=== PATIENT | male | born 1950 | race Caucasian/White ===

== ENCOUNTER → 2020-02-06 16:26 | Outpatient (CLI) | payer MEDICARE, SELFPAY ==
[2020-02-06 17:03] LABS: Add Manual Diff / Slide Review NO; Basophils Absolute Auto 0 /uL (0-100); Basophils Percent Auto 0.5 % (0-2); Eosinophils Absolute Auto 0 /uL (0-450); Eosinophils Percent Auto 0.8 % (2-4); Hematocrit 43.3 % (41-53); Hemoglobin 14.9 g/dL (13.5-17.5); Lymphocytes Absolute Auto 1400 /uL (1100-4500); Lymphocytes Percent Auto 26.7 % (25-40); Mean Corpuscular HGB Conc 34.4 % (30-36); Mean Corpuscular Hemoglobin 32.3 PG (26-34); Mean Corpuscular Volume 93.8 fL (80-100); Monocytes Absolute Auto 400 /uL (0-900); Monocytes Percent Auto 8.4 % (3-14); Neutrophils Absolute Auto 3300 /uL (1500-7000); Neutrophils Percent Auto 63.6 % (50-75); Platelet Count 168 X10^3/uL (150-400); Red Blood Cell Count 4.62 X10^6/uL (4.5-5.9); Red Cell Distribution Width 13.2 % (11.6-14.8); White Blood Cell Count 5.2 X10^3/uL (4.5-11.0)
[2020-02-06 18:01] LABS: Alanine Aminotransferase 26 IU/L (<50); Albumin 4.6 g/dL (3.5-5.0); Albumin Globulin Ratio 1.5 (1.0-2.8); Alkaline Phosphatase 59 U/L (38-126); Aspartate Aminotransferase 35 IU/L (17-59); BUN Creatinine Ratio 17.8 (6-22); Blood Urea Nitrogen 16 mg/dL (9-20); Calcium 9.6 mg/dL (8.4-10.2); Carbon Dioxide 29 mmol/L (22-32); Chloride 103 mmol/L (98-107); Cholesterol 142 mg/dL (140-199); Estimated Glomerular Filt Rate > 60.0 mL/min (>60); Globulin 3.1 g/dL (1.7-4.1); Glucose 89 mg/dL (80-110); HDL Cholesterol 79 mg/dL (40-60); HEMOLYSIS < 15 (0-50); LDL Cholesterol Calculated 57 mg/dL (<100); Potassium 4.3 mmol/L (3.4-5.1); Sodium 137 mmol/L (137-145); Total Protein 7.7 g/dL (6.3-8.2); Triglycerides 28 mg/dL (35-150)
[2020-02-06 18:30] LABS: Prostate Specific Antigen 0.446 ng/mL (0.10-4.00)
== END ==
PROVIDERS: PCP Family Medicine; Referring Provider Family Medicine; Visit Provider Family Medicine
DX: I10 Essential (primary) hypertension (principal); Z13.220 Encounter for screening for lipoid disorders; Z12.5 Encounter for screening for malignant neoplasm of prostate
CPT/HCPCS: 36415; 80053; 80061; 84153; 85025; G0103

== ENCOUNTER → 2020-07-16 11:05 | Outpatient (CLI) | payer MEDICARE, SELFPAY ==
--- NOTE | 2020-07-16 11:07 | DI.US.S_ITS ---
PROCEDURE: US PERIPH VENOUS LOW EXTREM LT INDICATIONS: left lower extr. edema; r/out DVT; has a hx of DVT TECHNIQUE: Real-time imaging, as well as color and pulse Doppler interrogation, were performed of the lower extremity deep veins from the inguinal ligament to the popliteal fossa. COMPARISON: , CR, XR KNEE LT 3V, 07/16/2020, 11:15. FINDINGS: Nonocclusive, chronic appearing thrombus can be seen within the common femoral vein. Within the femoral vein, no spontaneous flow can be seen within the mid to distal femoral vein. Minimal flow can be seen with augmentation. There is significant nonocclusive thrombus within the popliteal vein. The peroneal and posterior tibial veins demonstrate occlusive thrombus. IMPRESSION: Lower extremity deep venous thrombosis can be seen, with nonocclusive thrombus within the common femoral vein, femoral vein, and popliteal vein. Given the nonocclusive nature, this is considered to be chronic. Occlusive thrombus can be seen within the peroneal and posterior tibial veins. This is most likely acute on chronic thrombus. However, please correlate with patient history and any prior outside images. Dictated by: Sedrick Crook M.D. on 07/16/2020 at 11:46 Approved by: Sedrick Crook M.D. on 07/16/2020 at 11:49
--- NOTE | 2020-07-16 11:07 | DI.RAD.S_ITS ---
PROCEDURE: XR KNEE LT 3V INDICATIONS: left knee pain TECHNIQUE: 3 views of the knee were acquired. COMPARISON: None. FINDINGS: Bones: Mild medial joint space narrowing noted. The osseous structures are otherwise unremarkable without evidence of fracture. Soft tissues: No joint effusion. No suspicious soft tissue calcifications. IMPRESSION: Mild medial compartment joint space narrowing. Dictated by: Raad Gaming M.D. on 07/16/2020 at 11:31 Approved by: Raad Gaming M.D. on 07/16/2020 at 11:32
== END ==
PROVIDERS: PCP Family Medicine; Referring Provider Registered Nurse; Visit Provider Registered Nurse
DX: I82.442 Acute embolism and thrombosis of left tibial vein (principal); I82.452 Acute embolism and thrombosis of left peroneal vein; I82.512 Chronic embolism and thrombosis of left femoral vein; I82.532 Chronic embolism and thrombosis of left popliteal vein; M25.562 Pain in left knee; R60.0 Localized edema
CPT/HCPCS: 73562; 93971

== ENCOUNTER 2020-07-16 19:51 | Emergency (ER) | payer MEDICARE, SELFPAY ==
[2020-07-16 20:02] VITALS: BP 188/92; PULSE 82; RESP 16; TEMP 36.2; O2SAT 99
[2020-07-16 20:11] VITALS: PULSE 70
--- NOTE | 2020-07-16 20:47 | ED.EXTPRO ---
HPI - Extremity Problem General Chief complaint: Extremity Problem,Nontraumatic Stated complaint: HAD US WAS TOLD TO COME IN Time Seen by Provider: 07/16/20 19:55 Source: patient Mode of arrival: Ambulatory Limitations: no limitations History of Present Illness HPI Narrative: 70M nonsmoker and largely healthy male presents at the request of his doctor for evaluation after abnormal findings noted on a peripheral ultrasound. Patient was diagnosed with a left lower extremity DVT thought to be related to long distance travel in March. He had flown to [place] and within a few weeks started complaining of left calf pain, swelling and redness and after consulting with his doctor an ultrasound was ordered which noted a DVT. He was started on the Eliquis starter pack and has been on 5 mg p.o. b.i.d. ever since. He states he has missed no doses. Patient has had no chest pain or shortness of breath. He states that he continues to be quite active and had been running a few days ago when he noticed some medial left knee pain and contacted his doctor for evaluation. He thinks he may have tweaked it while running and had some pain with ambulation which has resolved. He denies any joint effusion, posterior knee pain, calf swelling or thigh discomfort, he denies any redness, warmth or fever. His primary care provider had ordered a knee x-ray which was unremarkable but also an ultrasound to evaluate for clot. The ultrasound does note clot but suggests these are likely chronic given the lack of full occlusion. MD Complaint: joint paint Onset (ago): day(s) Pain Consistency: intermittent Location: left Quality: aching Radiation: none Relieving factors: nothing Exacerbating factors: walking Associated symptoms: denies other symptoms Context: history of DVT Related Data Home Medications Medication Instructions Recorded Confirmed apixaban [Eliquis] 5 mg PO BID 07/16/20 07/16/20 lisinopril 20 mg PO DAILY 07/16/20 07/16/20 Allergies Allergy/AdvReac Type Severity Reaction Status Date / Time No Known Drug Allergies Allergy Verified 07/16/20 20:07 Review of Systems Constitutional Constitutional: Denies chills, Denies fatigue, Denies fever(s), Denies frequent falls, Denies lethargy and Denies weakness Eyes Eyes: Denies change in vision, Denies eye discharge, Denies irritation and Denies loss of vision ENT Ears, Nose, Mouth, and Throat: Denies change in voice, Denies dizziness, Denies neck pain, Denies sore throat and Denies throat swelling Cardiovascular Cardiovascular: Denies chest pain, Denies irregular heart rhythm, Denies lightheadedness, Denies palpitations, Denies dyspnea, Denies dyspnea on exertion and Denies orthopnea Respiratory Respiratory: Denies cough, Denies dyspnea, Denies dyspnea on exertion and Denies wheezing Gastrointestinal Gastrointestinal: Denies abdominal pain, Denies change in bowel habits, Denies diarrhea, Denies nausea and Denies vomiting Musculoskeletal Musculoskeletal: Reports arthralgias, Denies neck pain and Denies numbness Integumentary/Breasts Skin/Breast: Denies pruritus, Denies erythema, Denies rash and Denies wounds Neurologic Neurologic: Denies behavioral changes, Denies confusion, Denies dizziness, Denies frequent falls, Denies loss of vision, Denies numbness and Denies weakness Psychiatric Psychiatric: Denies anxiety, Denies behavioral changes, Denies confusion, Denies depression, Denies homicidal ideation and Denies suicidal ideation Endocrine Endocrine: Denies fatigue, Denies flushing and Denies palpitations Hematologic/Lymphatic Hematologic/Lymphatic: Denies easy bruising Allergic/Immunologic Allergic/Immunologic: Denies urticaria, Denies throat swelling and Denies wheezing Patient History Medical History Body posture problem Chicken pox Colon polyps (~2004) Eczema Edema of left lower extremity Heart murmur Hemorrhoid (~2015) Hx of deep venous thrombosis Hypertension, essential, benign Left arm pain Left knee pain Measles Mumps Screening for hyperlipidemia Screening for prostate cancer Shoulder pain (~2011) Skin cancer (~2013) Upper extremity somatic dysfunction Surgical History Anesthesia History of basal cell carcinoma excision (~2013) History of hemangioma excision (~1989) History of shoulder surgery (~08/13/13) History of tonsillectomy (~1954) Family History Father No problems noted. Mother Dementia Hypertension Brother Hypertension Brother Hypertension Grandfather History of heart disease Grandmother Cancer Grandfather History of heart disease Social History Smoking Status: Never smoker Smoking Status: Never smoker alcohol intake frequency: 0-2 drinks per day Substance Use Type: does not use Exam Narrative Exam Narrative: GENERAL: [70] year old patient appears younger than stated age. Well-nourished, well-developed patient, in no obvious or significant distress. HEAD: Atraumatic. Normocephalic. EYES: Pupils equal round and reactive. Extraocular motions intact. No scleral icterus. No injection or drainage. ENT: Nose without bleeding, purulent drainage. Throat without erythema, tonsillar hypertrophy or exudate. Airway patent. NECK: Trachea midline. Non tender CARDIOVASCULAR: Regular rate and rhythm without murmurs, gallops, or rubs. RESPIRATORY: Clear to auscultation. Breath sounds equal bilaterally. No wheezes, rales, or rhonchi. GASTROINTESTINAL: Abdomen soft, non-tender, nondistended. EXTREMITIES: No edema or joint tenderness. Or warmth, sensation and distal pulses intact BACK: Nontender without deformity or crepitance. No flank tenderness. NEURO: AOx3. SKIN: No rash or erythema of visible areas Initial Vital Signs Initial Vital Signs: Vital Signs Temperature 97.1 F L 07/16/20 20:02 Pulse Rate 82 07/16/20 20:02 Respiratory Rate 16 07/16/20 20:02 Blood Pressure 188/92 H 07/16/20 20:02 Pulse Oximetry 99 07/16/20 20:02 Course Consultations Consultation #1: discussed case with internal controls specialist hematology to discuss case. Given no swelling, redness, warmth and largely unremarkable findings on US he suggests this is unlikely a failure of anticoagulation. He recommends continuing current medication regimen and repeating US in 4 weeks unless there is clinical indication to do so sooner. Vital Signs Vital signs: Vital Signs - 8 hr 07/16/20 20:02 07/16/20 20:11 Temperature 97.1 F L Pulse Rate 82 Pulse Rate [Left Dorsalis Pedis] 70 Respiratory Rate 16 Blood Pressure 188/92 H Pulse Oximetry 99 Discharge Plan Departure Patient Disposition: Home Clinical Impression: Chronic deep vein thrombosis (DVT) Qualifiers: DVT location: lower extremity Affected thrombotic vein of extremity: femoral Laterality: left Qualified Code(s): I82.512 - Chronic embolism and thrombosis of left femoral vein Instructions: DI for Deep Vein Thrombosis Activity Restrictions/Additional Instructions: *You have been diagnosed with [chronic appearing DVT on ultrasound of your left lower extremity. Your history, exam and ultrasound would suggest that this is a chronic DVT and based on our discussion, and also that of mine with our on-call meteorological equipment repairer was suggest this is unlikely to be a failure of your anticoagulation] *What to do: *Please continue to take medications as directed *Follow up with your primary care provider in 2-3 days, call for an appointment. Let them know you were seen in the Emergency Department and that we ask that you be seen in follow up. Hematology would suggest a repeat ultrasound in 4 weeks. *Return to ER if you should have any new, worsening or concerning symptoms, such as [ increasing pain, fever > 101F, swelling, redness or other bothersome symptoms] Prescriptions: No Action Eliquis 5 mg tablet 5 mg PO BID RF: 0 lisinopril 20 mg tablet 20 mg PO DAILY RF: 0 Referrals: Wally Sierra DO [Primary Care Provider] -
== END 2020-07-16 21:03 | disposition home or self-care (01) ==
PROVIDERS: Emergency Provider Emergency Medicine; PCP Family Medicine
DX: I82.512 Chronic embolism and thrombosis of left femoral vein (principal); Z79.01 Long term (current) use of anticoagulants; I82.442 Acute embolism and thrombosis of left tibial vein; I82.452 Acute embolism and thrombosis of left peroneal vein; I82.532 Chronic embolism and thrombosis of left popliteal vein; M25.562 Pain in left knee; R60.0 Localized edema
CPT/HCPCS: 73562; 93971; 99281; 99283

== ENCOUNTER → 2020-08-15 10:39 | Outpatient (CLI) | payer MEDICARE, SELFPAY ==
--- NOTE | 2020-08-15 10:41 | DI.US.S_ITS ---
PROCEDURE: [facility] INDICATIONS: chronic dvt TECHNIQUE: Real-time imaging, as well as color and pulse Doppler interrogation, were performed of the lower extremity deep veins from the inguinal ligament to the popliteal fossa. COMPARISON: [facility], [facility] LOW EXTREM LT, 07/16/2020, 10:58. FINDINGS: There is nonocclusive thrombus and likely chronic, within the superficial femoral vein and popliteal vein and also note is made of thrombosis within the perineal and posterior tibial vein. Overall the appearance is improved from the comparison study 07/16/20. IMPRESSION: Improving DVT left lower extremity, now nonocclusive at the superficial femoral vein and popliteal vein, and also noted within the calf veins open (peroneal and posterior tibial veins). Dictated by: Jamarcus Aguirre M.D. on 08/15/2020 at 12:44 Approved by: Jamarcus Aguirre M.D. on 08/15/2020 at 12:45
== END ==
PROVIDERS: PCP Family Medicine; Referring Provider Family Medicine; Visit Provider Family Medicine
DX: I82.512 Chronic embolism and thrombosis of left femoral vein (principal)
CPT/HCPCS: 93971

== ENCOUNTER 2021-01-09 14:30 | Outpatient (RCR) | payer MEDICARE, SELFPAY ==
--- NOTE | 2020-11-22 10:31 | PT.OIE ---
Current Diagnoses Pain in left knee (11/22/20) Past Medical History (Last Reviewed 07/17/20 @ 03:12 by Rubén Shaw DO) Body posture problem Chicken pox Colon polyps (~2004) Eczema Edema of left lower extremity Heart murmur Hemorrhoid (~2015) History of basal cell carcinoma excision (~2013) History of hemangioma excision (~1989) History of shoulder surgery (~08/13/13) History of tonsillectomy (~1954) Hx of deep venous thrombosis Hypertension, essential, benign Left arm pain Left knee pain Measles Mumps Screening for hyperlipidemia Screening for prostate cancer Shoulder pain (~2011) Skin cancer (~2013) Upper extremity somatic dysfunction Past Surgical History (Last Reviewed 07/17/20 @ 03:12 by Rubén Shaw DO) Anesthesia History of basal cell carcinoma excision (~2013) History of hemangioma excision (~1989) History of shoulder surgery (~08/13/13) History of tonsillectomy (~1954) Visit Care Team Role Provider Type Wally Sierra DO Attending Provider Physician Family Provider Primary Care Provider Referring Provider Specialty: [facility] Address: [address] [place] [address] Email: Physical Therapy Initial Evaluation PT-OP-A Visit Information Start: 11/22/20 10:00 Freq: Status: Active Protocol: Document 11/22/20 09:00 (Rec: 11/22/20 10:31 [email or web address]) Out-Patient Physical Therapy Visit Information Visit Information Visit Type Initial Evaluation Visit Start Time 09:00 Visit Stop Time 09:45 Total Visit Minutes 45 Visit Number 04/03 Number of END MAKER Visits 0 Evaluation Information Evaluation Date 11/22/20 Precautions Precautions previous DVT PT-OP-B Current Condition Start: 11/22/20 10:00 Freq: Status: Active Protocol: Document 11/22/20 09:00 (Rec: 11/22/20 10:31 [email or web address]) Current Condition History of Current Condition Onset Date early this year Current Complaints L knee pain, unable to run History of Current Condition Flaco is a 70 yo very active male here for his L knee pain early this year. Pt stated his pain started after he ran one day at the medial knee joint line. He described his pain as sharp when he runs which led him to stop and limp after. He also has pain almost every night when he lays down with both legs straight. Rest tends to help so he has stopped running completely since early this year. He is still walking in the community and going to swim again starting from tomorrow. 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 His goal is to be able to run again. Pt's daily ex routine includes push up, sit up, squat and walking. Prior Treatments and Tests 07/16/2020 x-ray on L knee IMPRESSION: Mild medial compartment joint space narrowing. Rtc repair on R shoulder 2017 Current Functional Impairments (Reported) Functional Limitations- Recreation/ unable to run d/t L knee pain Hobbies Personal Factors Other Personal Factors That May Effect previous DVT Therapy/Recovery PT-OP-C Subjective Start: 11/22/20 10:00 Freq: Status: Active Protocol: Document 11/22/20 09:00 (Rec: 11/22/20 10:31 [email or web address]) Patient Questionnaires Lower Extremity Functional Scale LEFS Score 73 LEFS Impairment 1 to 19% Impaired (Score 63-79 ) OP-PT Pain Assessment Location Left Knee Pain Location Details medial knee joint line Intensity 2 Description Aching Frequency Occasional Pain Aggravating Factors Exercise Other Pain Aggravating Factors running/ sleeping in supine Other Pain Alleviating Factors rest PT-OP-D Balance Start: 11/22/20 10:00 Freq: Status: Active Protocol: Document 11/22/20 09:00 (Rec: 11/22/20 10:31 [email or web address]) Balance Tests Single Limb Standing Single Limb- Right 33, R foot out, R knee bent Single Limb- Left 31, foot pronation PT-OP-F Manual Assessment Start: 11/22/20 10:00 Freq: Status: Active Protocol: Document 11/22/20 09:00 (Rec: 11/22/20 10:31 [email or web address]) Manual Assessments Soft Tissue Assessment Soft Tissue Mobility Assessment mild discomfort to pressure at L medial joint line Joint Mobility Assessment Joint Mobility Assessment hypomobile L calcaneal glide and ankle eversion PT-OP-G Mobility & Gait Start: 11/22/20 10:00 Freq: Status: Active Protocol: Document 11/22/20 09:00 (Rec: 11/22/20 10:31 [email or web address]) OP Gait Assessment Comments Gait Comments RLE= increased knee flexion in swing phase , R toe out during stance phase LLE= slight valgus moment on medial knee during stance phase, slight R hip hike noted PT-OP-K Range of Motion Start: 11/22/20 10:00 Freq: Status: Active Protocol: Document 11/22/20 09:00 (Rec: 11/22/20 10:31 [email or web address]) Knee Goniometric Range of Motion Knee Right Knee ROM WFL Yes Patient Position Supine Flexion Active (degrees) 135 Extension Active (degrees) 5 Left Knee ROM WFL Yes Patient Position Supine Flexion Active (degrees) 130 Extension Active (degrees) 4 Ankle and Foot Goniometric Range of Motion Ankle and Foot Right Active Ankle/Foot ROM WFL Yes Testing Position Supine Dorsiflexion with Knee Flexed 16 Dorsiflexion with Knee Extended 4 Left Active Ankle/Foot ROM WFL Yes Testing Position Supine Dorsiflexion with Knee Flexed 17 Dorsiflexion with Knee Extended 8 PT-OP-L Special Tests Start: 11/22/20 10:00 Freq: Status: Active Protocol: Document 11/22/20 09:00 (Rec: 11/22/20 10:31 [email or web address]) Special Tests Knee Special Tests Varus- 0 Degrees Test Results -ve Varus- 25 Degrees Test Results -ve Valgus- 25 Degrees Test Results +VE Valgus- 0 Degrees Test Results -ve Apley's Compression Test Results +VE with tibial ER Yo Test Test Results +VE with tibial ER PT-OP-M Strength Start: 11/22/20 10:00 Freq: Status: Active Protocol: Document 11/22/20 09:00 (Rec: 11/22/20 10:31 [email or web address]) Hip Strength Hip Manual Muscle Testing Right Flexion (L2) 5 Normal Extension (S1) 5 Normal Abduction 5 Normal Adduction 5 Normal Left Flexion (L2) 5 Normal Extension (S1) 4+ Good+ Abduction 4+ Good+ Adduction 5 Normal Knee Strength Knee Manual Muscle Testing Right Flexion (S2) 5 Normal Extension (L3) 5 Normal Left Flexion (S2) 4+ Good+ Extension (L3) 4+ Good+ Ankle/Foot Strength Ankle and Foot Manual Muscle Testing Right Dorsiflexion (L4) 5 Normal Plantarflexion (S1) 5 Normal Left Dorsiflexion (L4) 5 Normal Plantarflexion (S1) 5 Normal PT-OP-T Assessment and Plan Start: 11/22/20 10:00 Freq: Status: Active Protocol: Document 11/22/20 09:00 (Rec: 11/22/20 10:31 [email or web address]) Physical Therapy Assessment Rehab Potential Rehabilitation Potential Excellent Evaluation Complexity Number of Personal Factors/Comorbidities 1-2 Number of Body Systems Impaired 1-2 Clinical Presentation at Evaluation Stable Goals HEP Impairment pt does not ahve HEP Short Term Goal (STG) pt will comply to daily HEP to improve his knee strength and mobility therefore he can return to running STG Duration 8 weeks running Impairment pt unable to run since feburary. Short Term Goal (STG) pt will be able to start jogging 1-2 miles x 2 times a week with no increase pain in L knee STG Duration 4 weeks Equipment Validation Specialist Goal (LTG) pt will be able to start jogging 3 miles x 3 times a week with no increase pain in L knee LTG Duration 8 weeks night pain Impairment pt experiences daily night pain at L knee Short Term Goal (STG) pt will have L knee pain no more than 4 nights a week to improve his quality of sleep STG Duration 4weeks Shelter Goal (LTG) pt will have L knee pain no more than 2 nights a week to improve his quality of sleep LTG Duration 8 weeks Assessment Summary Assessment 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 Upon assessment, pt shows signs of OA at medial compartment like his x-ray shown. Both Yo, Apley's compression are both positive. He also presents possible LLD (R>L) who walks with R hip hike to increase R LE clearance during gait assessment. Further assessment will be needed. I believe pt will benefit from skilled therapy to improve his L knee, ankle flexibility and single leg stability by ROM therex and low impact strength training. Therefore, pt can fully return to his running routine without discomfort. Physical Therapy Plan Frequency and Duration Frequency of Treatment 1x/Week Duration of Treatment 8 weeks Plan of Care Start Date 11/22/20 Plan of Care End Date 01/21/21 Therapeutic Interventions Therapeutic Interventions Aquatic Therapy,Balance Training,Gait Training,Home Exercise Program,Joint Mobilizations,Manual Therapy, Neuromuscular Re-education, Patient/Caregiver Education, Self-Care/Home Management,Soft Tissue Mobilization,Taping, Therapeutic Activities, Therapeutic Exercises Modalities Cold Pack/Ice Massage,Electric Stimulation,Hot Packs, Infrared Therapy,Ultrasound Next Visit Focus/Plan Next Note Type Treatment Note Next Visit Plan assess LLD galf stretch, eversion ex LAQ, bridging glute sterngtehning
--- NOTE | 2020-11-22 10:31 | PT.OPPOC ---
Physical, Occupational & Speech Therapy At [facility] Current Diagnoses Pain in left knee (11/22/20) Visit Care Team Role Provider Type Wally Sierra DO Attending Provider Physician Family Provider Primary Care Provider Referring Provider Specialty: Family Practice Address: [address] [place] [address], [id number] Email: Plan Of Care PT-OP-T Assessment and Plan Start: 11/22/20 10:00 Freq: Status: Active Protocol: Document 11/22/20 09:00 (Rec: 11/22/20 10:31 [email or web address]) Physical Therapy Assessment Rehab Potential Rehabilitation Potential Excellent Evaluation Complexity Number of Personal Factors/Comorbidities 1-2 Number of Body Systems Impaired 1-2 Clinical Presentation at Evaluation Stable Goals HEP Impairment pt does not ahve HEP Short Term Goal (STG) pt will comply to daily HEP to improve his knee strength and mobility therefore he can return to running STG Duration 8 weeks running Impairment pt unable to run since feburary. Short Term Goal (STG) pt will be able to start jogging 1-2 miles x 2 times a week with no increase pain in L knee STG Duration 4 weeks Business Attorney Goal (LTG) pt will be able to start jogging 3 miles x 3 times a week with no increase pain in L knee LTG Duration 8 weeks night pain Impairment pt experiences daily night pain at L knee Short Term Goal (STG) pt will have L knee pain no more than 4 nights a week to improve his quality of sleep STG Duration 4weeks Assisted Goal (LTG) pt will have L knee pain no more than 2 nights a week to improve his quality of sleep LTG Duration 8 weeks Assessment Summary Assessment 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 Upon assessment, pt shows signs of OA at medial compartment like his x-ray shown. Both YoJulia's compression are both positive. He also presents possible LLD (R>L) who walks with R hip hike to increase R LE clearance during gait assessment. Further assessment will be needed. I believe pt will benefit from skilled therapy to improve his L knee, ankle flexibility and single leg stability by ROM therex and low impact strength training. Therefore, pt can fully return to his running routine without discomfort. Physical Therapy Plan Frequency and Duration Frequency of Treatment 1x/Week Duration of Treatment 8 weeks Plan of Care Start Date 11/22/20 Plan of Care End Date 01/21/21 Therapeutic Interventions Therapeutic Interventions Aquatic Therapy,Balance Training,Gait Training,Home Exercise Program,Joint Mobilizations,Manual Therapy, Neuromuscular Re-education, Patient/Caregiver Education, Self-Care/Home Management,Soft Tissue Mobilization,Taping, Therapeutic Activities, Therapeutic Exercises Modalities Cold Pack/Ice Massage,Electric Stimulation,Hot Packs, Infrared Therapy,Ultrasound Next Visit Focus/Plan Next Note Type Treatment Note Next Visit Plan assess LLD galf stretch, eversion ex LAQ, bridging glute sterngtehning Plan of Care Dates Plan of Care Start Date 11/22/20 Plan of Care End Date 01/21/21 Electronically Signed by: Maddison Garcia PT 11/22/20 1031 Please Sign and Return: I have reviewed this Plan of Care and certify that the skilled therapy services above are required to meet the patient?s needs. Physician Signature Date Printed Name and Credentials Clinical Instructor Signature Printed Name and Credentials
--- NOTE | 2020-11-28 11:17 | PT.OTN ---
Current Diagnoses Pain in left knee (11/28/20) Physical Therapy Treatment Note PT-OP-A Visit Information Start: 11/22/20 10:00 Freq: Status: Active Protocol: Document 11/28/20 10:32 HH (Rec: 11/28/20 11:16 [id number]) Out-Patient Physical Therapy Visit Information Visit Information Visit Type Treatment Note Visit Start Time 10:33 Visit Stop Time 11:15 Total Visit Minutes 43 Visit Number / Number of CARROT HARVESTER Visits 0 PT-OP-B Current Condition Start: 11/22/20 10:00 Freq: Status: Active Protocol: Document 11/22/20 09:00 HH (Rec: 11/22/20 10:31 [email or web address]) Current Condition History of Current Condition Onset Date early this year Current Complaints L knee pain, unable to run History of Current Condition Flaco is a 70 yo very active male here for his L knee pain early this year. Pt stated his pain started after he ran one day at the medial knee joint line. He described his pain as sharp when he runs which led him to stop and limp after. He also has pain almost every night when he lays down with both legs straight. Rest tends to help so he has stopped running completely since early this year. He is still walking in the community and going to swim again starting from tomorrow. 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 His goal is to be able to run again. Pt's daily ex routine includes push up, sit up, squat and walking. Prior Treatments and Tests 07/16/2020 x-ray on L knee IMPRESSION: Mild medial compartment joint space narrowing. Rtc repair on R shoulder 2016 Current Functional Impairments (Reported) Functional Limitations- Recreation/ unable to run d/t L knee pain Hobbies Personal Factors Other Personal Factors That May Effect previous DVT Therapy/Recovery PT-OP-C Subjective Start: 11/22/20 10:00 Freq: Status: Active Protocol: Document 11/28/20 10:32 HH (Rec: 11/28/20 11:16 [id number]) OP-PT Subjective Patient Comments Patient Comments I am ready to do therapy. PT-OP-D Balance Start: 11/22/20 10:00 Freq: Status: Active Protocol: Document 11/22/20 09:00 HH (Rec: 11/22/20 10:31 [email or web address]) Balance Tests Single Limb Standing Single Limb- Right 33, R foot out, R knee bent Single Limb- Left 31, foot pronation PT-OP-F Manual Assessment Start: 11/22/20 10:00 Freq: Status: Active Protocol: Document 11/22/20 09:00 (Rec: 11/22/20 10:31 [email or web address]) Manual Assessments Soft Tissue Assessment Soft Tissue Mobility Assessment mild discomfort to pressure at L medial joint line Joint Mobility Assessment Joint Mobility Assessment hypomobile L calcaneal glide and ankle eversion PT-OP-G Mobility & Gait Start: 11/22/20 10:00 Freq: Status: Active Protocol: Document 11/22/20 09:00 (Rec: 11/22/20 10:31 [email or web address]) OP Gait Assessment Comments Gait Comments RLE= increased knee flexion in swing phase , R toe out during stance phase LLE= slight valgus moment on medial knee during stance phase, slight R hip hike noted PT-OP-K Range of Motion Start: 11/22/20 10:00 Freq: Status: Active Protocol: Document 11/22/20 09:00 (Rec: 11/22/20 10:31 [email or web address]) Knee Goniometric Range of Motion Knee Right Knee ROM WFL Yes Patient Position Supine Flexion Active (degrees) 135 Extension Active (degrees) 5 Left Knee ROM WFL Yes Patient Position Supine Flexion Active (degrees) 130 Extension Active (degrees) 4 Ankle and Foot Goniometric Range of Motion Ankle and Foot Right Active Ankle/Foot ROM WFL Yes Testing Position Supine Dorsiflexion with Knee Flexed 16 Dorsiflexion with Knee Extended 4 Left Active Ankle/Foot ROM WFL Yes Testing Position Supine Dorsiflexion with Knee Flexed 17 Dorsiflexion with Knee Extended 8 PT-OP-L Special Tests Start: 11/22/20 10:00 Freq: Status: Active Protocol: Document 11/22/20 09:00 (Rec: 11/22/20 10:31 [email or web address]) Special Tests Knee Special Tests Varus- 0 Degrees Test Results -ve Varus- 25 Degrees Test Results -ve Valgus- 25 Degrees Test Results +VE Valgus- 0 Degrees Test Results -ve Apley's Compression Test Results +VE with tibial ER Yo Test Test Results +VE with tibial ER PT-OP-M Strength Start: 11/22/20 10:00 Freq: Status: Active Protocol: Document 11/22/20 09:00 (Rec: 11/22/20 10:31 [email or web address]) Hip Strength Hip Manual Muscle Testing Right Flexion (L2) 5 Normal Extension (S1) 5 Normal Abduction 5 Normal Adduction 5 Normal Left Flexion (L2) 5 Normal Extension (S1) 4+ Good+ Abduction 4+ Good+ Adduction 5 Normal Knee Strength Knee Manual Muscle Testing Right Flexion (S2) 5 Normal Extension (L3) 5 Normal Left Flexion (S2) 4+ Good+ Extension (L3) 4+ Good+ Ankle/Foot Strength Ankle and Foot Manual Muscle Testing Right Dorsiflexion (L4) 5 Normal Plantarflexion (S1) 5 Normal Left Dorsiflexion (L4) 5 Normal Plantarflexion (S1) 5 Normal PT-OP-Q Treatments Start: 11/22/20 10:00 Freq: Status: Active Protocol: Document 11/28/20 10:32 (Rec: 11/28/20 11:16 [id number]) Therapeutic Exercises Supine Exercises pelvic realigment Supine Exercise Name ball squeeze and shotgun method. Reps/Minutes 5sec hold with ball x10, shot gun with 5 sec hold. bridging Equipment Used with red band. Reps/Minutes 10 x 2 Comments for HEP Sitting Exercises LAQ Resistance red band Reps/Minutes 10 x2 Comments for HEP Standing Exercises heel raise Reps/Minutes 10 x 2 Comments for HEP calf stretch Reps/Minutes 15 sec hold x5 Comments for HEP Manual Therapy Treatment Soft Tissue Mobilization lateral quad Mobilization Type Sustained Pressure,Trigger Point Release Intensity/Depth Moderate Body Position Supine Joint Mobilizations calcaneus Joint lateral glide Grade II Body Position Supine PT-OP-T Assessment and Plan Start: 11/22/20 10:00 Freq: Status: Active Protocol: Document 11/28/20 10:32 (Rec: 11/28/20 11:16 [id number]) Physical Therapy Assessment Goals HEP Impairment pt does not ahve HEP Short Term Goal (STG) pt will comply to daily HEP to improve his knee strength and mobility therefore he can return to running STG Duration 8 weeks running Impairment pt unable to run since feburary. Short Term Goal (STG) pt will be able to start jogging 1-2 miles x 2 times a week with no increase pain in L knee STG Duration 4 weeks [employer] I Assembler Goal (LTG) pt will be able to start jogging 3 miles x 3 times a week with no increase pain in L knee LTG Duration 8 weeks night pain Impairment pt experiences daily night pain at L knee Short Term Goal (STG) pt will have L knee pain no more than 4 nights a week to improve his quality of sleep STG Duration 4weeks [employer] Assembler Goal (LTG) pt will have L knee pain no more than 2 nights a week to improve his quality of sleep LTG Duration 8 weeks Assessment Summary Assessment first tx session with Pito fonseca. Noticed pt has less flexiblity on hip and ankle compared to R. Added LAQ, heel raises, calf stretch, bridgin to HEP. Will reassess his tolerance next visit. Physical Therapy Plan Frequency and Duration Frequency of Treatment 1x/Week Duration of Treatment 8 weeks Plan of Care Start Date 11/22/20 Plan of Care End Date 01/21/21 Therapeutic Interventions Therapeutic Interventions Aquatic Therapy,Balance Training,Gait Training,Home Exercise Program,Joint Mobilizations,Manual Therapy, Neuromuscular Re-education, Patient/Caregiver Education, Self-Care/Home Management,Soft Tissue Mobilization,Taping, Therapeutic Activities, Therapeutic Exercises Modalities Cold Pack/Ice Massage,Electric Stimulation,Hot Packs, Infrared Therapy,Ultrasound Next Visit Focus/Plan Next Note Type Treatment Note Next Visit Plan assess LLD galf stretch, eversion ex LAQ, bridging glute sterngtehning
--- NOTE | 2020-12-05 12:08 | PT.OTN ---
Current Diagnoses Pain in left knee (12/05/20) Physical Therapy Treatment Note PT-OP-A Visit Information Start: 11/22/20 10:00 Freq: Status: Active Protocol: Document 12/05/20 11:15 HH (Rec: 12/05/20 12:08 [id number]) Out-Patient Physical Therapy Visit Information Visit Information Visit Type Treatment Note Visit Start Time 10:33 Visit Stop Time 11:15 Total Visit Minutes 43 Visit Number 06/01 Number of CAR LOADER Visits 0 PT-OP-B Current Condition Start: 11/22/20 10:00 Freq: Status: Active Protocol: Document 11/22/20 09:00 HH (Rec: 11/22/20 10:31 [email or web address]) Current Condition History of Current Condition Onset Date early this year Current Complaints L knee pain, unable to run History of Current Condition Flaco is a 70 yo very active male here for his L knee pain early this year. Pt stated his pain started after he ran one day at the medial knee joint line. He described his pain as sharp when he runs which led him to stop and limp after. He also has pain almost every night when he lays down with both legs straight. Rest tends to help so he has stopped running completely since early this year. He is still walking in the community and going to swim again starting from tomorrow. 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 His goal is to be able to run again. Pt's daily ex routine includes push up, sit up, squat and walking. Prior Treatments and Tests 07/16/2020 x-ray on L knee IMPRESSION: Mild medial compartment joint space narrowing. Rtc repair on R shoulder 2016 Current Functional Impairments (Reported) Functional Limitations- Recreation/ unable to run d/t L knee pain Hobbies Personal Factors Other Personal Factors That May Effect previous DVT Therapy/Recovery PT-OP-C Subjective Start: 11/22/20 10:00 Freq: Status: Active Protocol: Document 12/05/20 11:15 HH (Rec: 12/05/20 12:08 [id number]) OP-PT Subjective Patient Comments Patient Comments Camelia been doing my exercises everyday. I did some stationary biking couple times a week 25 mins each time. Patient Reported Progress Improving PT-OP-D Balance Start: 11/22/20 10:00 Freq: Status: Active Protocol: Document 11/22/20 09:00 (Rec: 11/22/20 10:31 [email or web address]) Balance Tests Single Limb Standing Single Limb- Right 33, R foot out, R knee bent Single Limb- Left 31, foot pronation PT-OP-F Manual Assessment Start: 11/22/20 10:00 Freq: Status: Active Protocol: Document 11/22/20 09:00 HH (Rec: 11/22/20 10:31 [email or web address]) Manual Assessments Soft Tissue Assessment Soft Tissue Mobility Assessment mild discomfort to pressure at L medial joint line Joint Mobility Assessment Joint Mobility Assessment hypomobile L calcaneal glide and ankle eversion PT-OP-G Mobility & Gait Start: 11/22/20 10:00 Freq: Status: Active Protocol: Document 11/22/20 09:00 HH (Rec: 11/22/20 10:31 [email or web address]) OP Gait Assessment Comments Gait Comments RLE= increased knee flexion in swing phase , R toe out during stance phase LLE= slight valgus moment on medial knee during stance phase, slight R hip hike noted PT-OP-K Range of Motion Start: 11/22/20 10:00 Freq: Status: Active Protocol: Document 11/22/20 09:00 (Rec: 11/22/20 10:31 [email or web address]) Knee Goniometric Range of Motion Knee Right Knee ROM WFL Yes Patient Position Supine Flexion Active (degrees) 135 Extension Active (degrees) 5 Left Knee ROM WFL Yes Patient Position Supine Flexion Active (degrees) 130 Extension Active (degrees) 4 Ankle and Foot Goniometric Range of Motion Ankle and Foot Right Active Ankle/Foot ROM WFL Yes Testing Position Supine Dorsiflexion with Knee Flexed 16 Dorsiflexion with Knee Extended 4 Left Active Ankle/Foot ROM WFL Yes Testing Position Supine Dorsiflexion with Knee Flexed 17 Dorsiflexion with Knee Extended 8 PT-OP-L Special Tests Start: 11/22/20 10:00 Freq: Status: Active Protocol: Document 11/22/20 09:00 (Rec: 11/22/20 10:31 [email or web address]) Special Tests Knee Special Tests Varus- 0 Degrees Test Results -ve Varus- 25 Degrees Test Results -ve Valgus- 25 Degrees Test Results +VE Valgus- 0 Degrees Test Results -ve Apley's Compression Test Results +VE with tibial ER Yo Test Test Results +VE with tibial ER PT-OP-M Strength Start: 11/22/20 10:00 Freq: Status: Active Protocol: Document 11/22/20 09:00 HH (Rec: 11/22/20 10:31 HH [email or web address]) Hip Strength Hip Manual Muscle Testing Right Flexion (L2) 5 Normal Extension (S1) 5 Normal Abduction 5 Normal Adduction 5 Normal Left Flexion (L2) 5 Normal Extension (S1) 4+ Good+ Abduction 4+ Good+ Adduction 5 Normal Knee Strength Knee Manual Muscle Testing Right Flexion (S2) 5 Normal Extension (L3) 5 Normal Left Flexion (S2) 4+ Good+ Extension (L3) 4+ Good+ Ankle/Foot Strength Ankle and Foot Manual Muscle Testing Right Dorsiflexion (L4) 5 Normal Plantarflexion (S1) 5 Normal Left Dorsiflexion (L4) 5 Normal Plantarflexion (S1) 5 Normal PT-OP-Q Treatments Start: 11/22/20 10:00 Freq: Status: Active Protocol: Document 12/05/20 11:15 HH (Rec: 12/05/20 12:08 [id number]) Cardio Equipment Elliptical Duration (Minutes) 4 Resistance 5 Other no discomfort noted, Slight R knee valgus Bicycle (Upright) Duration (Minutes) 5 Resistance 8 Other slight R knee valgus, no discomfort noted. Therapeutic Exercises Sitting Exercises LAQ Resistance 5lbs ankle weight Reps/Minutes 10 x2, 3 sec top Comments for HEP Standing Exercises step up Resistance 8 inch box Reps/Minutes 10 x2 Comments cues on neutral foot position. heel raise Equipment Used ball between ankles Reps/Minutes 10 x2 Comments for HEP Manual Therapy Treatment Soft Tissue Mobilization lateral quad Mobilization Type Sustained Pressure,Trigger Point Release Intensity/Depth Moderate Body Position Supine Joint Mobilizations calcaneus Joint lateral glide Grade II Body Position Supine PT-OP-T Assessment and Plan Start: 11/22/20 10:00 Freq: Status: Active Protocol: Document 12/05/20 11:15 HH (Rec: 12/05/20 12:08 [id number]) Physical Therapy Assessment Goals HEP Impairment pt does not ahve HEP Short Term Goal (STG) pt will comply to daily HEP to improve his knee strength and mobility therefore he can return to running STG Duration 8 weeks running Impairment pt unable to run since feburary. Short Term Goal (STG) pt will be able to start jogging 1-2 miles x 2 times a week with no increase pain in L knee STG Duration 4 weeks Intermediate Goal (LTG) pt will be able to start jogging 3 miles x 3 times a week with no increase pain in L knee LTG Duration 8 weeks night pain Impairment pt experiences daily night pain at L knee Short Term Goal (STG) pt will have L knee pain no more than 4 nights a week to improve his quality of sleep STG Duration 4weeks Chicken Boner Goal (LTG) pt will have L knee pain no more than 2 nights a week to improve his quality of sleep LTG Duration 8 weeks Assessment Summary Assessment pt reports he has no c/o at this point with HEP and biking . He did eliptical today without discomfort. Added step up to focus on ankle knee and hip alignement and he tolerated well. Physical Therapy Plan Frequency and Duration Frequency of Treatment 1x/Week Duration of Treatment 8 weeks Plan of Care Start Date 11/22/20 Plan of Care End Date 01/21/21 Therapeutic Interventions Therapeutic Interventions Aquatic Therapy,Balance Training,Gait Training,Home Exercise Program,Joint Mobilizations,Manual Therapy, Neuromuscular Re-education, Patient/Caregiver Education, Self-Care/Home Management,Soft Tissue Mobilization,Taping, Therapeutic Activities, Therapeutic Exercises Modalities Cold Pack/Ice Massage,Electric Stimulation,Hot Packs, Infrared Therapy,Ultrasound Next Visit Focus/Plan Next Note Type Treatment Note Next Visit Plan assess LLD galf stretch, eversion ex LAQ, bridging glute sterngtehning
--- NOTE | 2020-12-11 11:44 | PT.OTN ---
Current Diagnoses Pain in left knee (12/11/20) Physical Therapy Treatment Note PT-OP-A Visit Information Start: 11/22/20 10:00 Freq: Status: Active Protocol: Document 12/11/20 09:49 HH (Rec: 12/11/20 11:44 [id number]) Out-Patient Physical Therapy Visit Information Visit Information Visit Type Treatment Note Visit Start Time 09:46 Visit Stop Time 10:30 Total Visit Minutes 44 Visit Number 07/02 Number of MANAGER SQL Visits 0 PT-OP-B Current Condition Start: 11/22/20 10:00 Freq: Status: Active Protocol: Document 11/22/20 09:00 HH (Rec: 11/22/20 10:31 HH [email or web address]) Current Condition History of Current Condition Onset Date early this year Current Complaints L knee pain, unable to run History of Current Condition Flaco is a 70 yo very active male here for his L knee pain early this year. Pt stated his pain started after he ran one day at the medial knee joint line. He described his pain as sharp when he runs which led him to stop and limp after. He also has pain almost every night when he lays down with both legs straight. Rest tends to help so he has stopped running completely since early this year. He is still walking in the community and going to swim again starting from tomorrow. 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 His goal is to be able to run again. Pt's daily ex routine includes push up, sit up, squat and walking. Prior Treatments and Tests 07/16/2020 x-ray on L knee IMPRESSION: Mild medial compartment joint space narrowing. Rtc repair on R shoulder 2016 Current Functional Impairments (Reported) Functional Limitations- Recreation/ unable to run d/t L knee pain Hobbies Personal Factors Other Personal Factors That May Effect previous DVT Therapy/Recovery PT-OP-C Subjective Start: 11/22/20 10:00 Freq: Status: Active Protocol: Document 12/11/20 09:49 HH (Rec: 12/11/20 11:44 [id number]) OP-PT Subjective Patient Comments Patient Comments Camelia been doing all my exercises so far. I walked uphill and downhill with some steps for a couple miles and i could feel the inside of the L knee. Patient Reported Progress Improving PT-OP-D Balance Start: 11/22/20 10:00 Freq: Status: Active Protocol: Document 11/22/20 09:00 (Rec: 11/22/20 10:31 [email or web address]) Balance Tests Single Limb Standing Single Limb- Right 33, R foot out, R knee bent Single Limb- Left 31, foot pronation PT-OP-F Manual Assessment Start: 11/22/20 10:00 Freq: Status: Active Protocol: Document 11/22/20 09:00 (Rec: 11/22/20 10:31 [email or web address]) Manual Assessments Soft Tissue Assessment Soft Tissue Mobility Assessment mild discomfort to pressure at L medial joint line Joint Mobility Assessment Joint Mobility Assessment hypomobile L calcaneal glide and ankle eversion PT-OP-G Mobility & Gait Start: 11/22/20 10:00 Freq: Status: Active Protocol: Document 11/22/20 09:00 HH (Rec: 11/22/20 10:31 [email or web address]) OP Gait Assessment Comments Gait Comments RLE= increased knee flexion in swing phase , R toe out during stance phase LLE= slight valgus moment on medial knee during stance phase, slight R hip hike noted PT-OP-K Range of Motion Start: 11/22/20 10:00 Freq: Status: Active Protocol: Document 11/22/20 09:00 (Rec: 11/22/20 10:31 [email or web address]) Knee Goniometric Range of Motion Knee Right Knee ROM WFL Yes Patient Position Supine Flexion Active (degrees) 135 Extension Active (degrees) 5 Left Knee ROM WFL Yes Patient Position Supine Flexion Active (degrees) 130 Extension Active (degrees) 4 Ankle and Foot Goniometric Range of Motion Ankle and Foot Right Active Ankle/Foot ROM WFL Yes Testing Position Supine Dorsiflexion with Knee Flexed 16 Dorsiflexion with Knee Extended 4 Left Active Ankle/Foot ROM WFL Yes Testing Position Supine Dorsiflexion with Knee Flexed 17 Dorsiflexion with Knee Extended 8 PT-OP-L Special Tests Start: 11/22/20 10:00 Freq: Status: Active Protocol: Document 11/22/20 09:00 (Rec: 11/22/20 10:31 [email or web address]) Special Tests Knee Special Tests Varus- 0 Degrees Test Results -ve Varus- 25 Degrees Test Results -ve Valgus- 25 Degrees Test Results +VE Valgus- 0 Degrees Test Results -ve Apley's Compression Test Results +VE with tibial ER Yo Test Test Results +VE with tibial ER PT-OP-M Strength Start: 11/22/20 10:00 Freq: Status: Active Protocol: Document 11/22/20 09:00 HH (Rec: 11/22/20 10:31 HH [email or web address]) Hip Strength Hip Manual Muscle Testing Right Flexion (L2) 5 Normal Extension (S1) 5 Normal Abduction 5 Normal Adduction 5 Normal Left Flexion (L2) 5 Normal Extension (S1) 4+ Good+ Abduction 4+ Good+ Adduction 5 Normal Knee Strength Knee Manual Muscle Testing Right Flexion (S2) 5 Normal Extension (L3) 5 Normal Left Flexion (S2) 4+ Good+ Extension (L3) 4+ Good+ Ankle/Foot Strength Ankle and Foot Manual Muscle Testing Right Dorsiflexion (L4) 5 Normal Plantarflexion (S1) 5 Normal Left Dorsiflexion (L4) 5 Normal Plantarflexion (S1) 5 Normal PT-OP-Q Treatments Start: 11/22/20 10:00 Freq: Status: Active Protocol: Document 12/11/20 09:49 HH (Rec: 12/11/20 11:44 HH [id number]) Cardio Equipment Elliptical Duration (Minutes) 4 Resistance 5 Other no discomfort noted, Slight R knee valgus Gym Equipment Shuttle Recovery leg squat Details SL squat Resistance #50 Shuttle Recovery Platform Stable Reps/Time 15 x 2 Therapeutic Exercises Supine Exercises SLR Supine Exercise Name unilateral Side bilateral Reps/Minutes 10 x2 bridging Equipment Used with ball squeeze Reps/Minutes 10 x 2 Sidelying Exercises hip abd Side bilateral Reps/Minutes 10 x2 Sitting Exercises LAQ Resistance 10lbs ankle weight Reps/Minutes 10 x2, 3 sec top Comments for HEP Standing Exercises RDL Standing Exercise Name unilateral Side bilateral Equipment Used reach for cones. Comments R easier L SLS stance Standing Exercise Name on blue foam Side bilateral Equipment Used blue foam Comments soft knee bent, R easier L step up Resistance 8 inch box Reps/Minutes 10 x2 Comments cues on neutral foot position. PT-OP-T Assessment and Plan Start: 11/22/20 10:00 Freq: Status: Active Protocol: Document 12/11/20 09:49 HH (Rec: 12/11/20 11:44 HH [id number]) Physical Therapy Assessment Goals HEP Impairment pt does not ahve HEP Short Term Goal (STG) pt will comply to daily HEP to improve his knee strength and mobility therefore he can return to running STG Duration 8 weeks running Impairment pt unable to run since feburary. Short Term Goal (STG) pt will be able to start jogging 1-2 miles x 2 times a week with no increase pain in L knee STG Duration 4 weeks Correction Goal (LTG) pt will be able to start jogging 3 miles x 3 times a week with no increase pain in L knee LTG Duration 8 weeks night pain Impairment pt experiences daily night pain at L knee Short Term Goal (STG) pt will have L knee pain no more than 4 nights a week to improve his quality of sleep STG Duration 4weeks Correction Goal (LTG) pt will have L knee pain no more than 2 nights a week to improve his quality of sleep LTG Duration 8 weeks Assessment Summary Assessment pt edilia session well today with focus on hip and knee strengthening. Added single leg balance therex and noticed R performed better than L. He has no c/o and will continue to progress SL ex to micmic running. Physical Therapy Plan Frequency and Duration Frequency of Treatment 1x/Week Duration of Treatment 8 weeks Plan of Care Start Date 11/22/20 Plan of Care End Date 01/21/21 Therapeutic Interventions Therapeutic Interventions Aquatic Therapy,Balance Training,Gait Training,Home Exercise Program,Joint Mobilizations,Manual Therapy, Neuromuscular Re-education, Patient/Caregiver Education, Self-Care/Home Management,Soft Tissue Mobilization,Taping, Therapeutic Activities, Therapeutic Exercises Modalities Cold Pack/Ice Massage,Electric Stimulation,Hot Packs, Infrared Therapy,Ultrasound Next Visit Focus/Plan Next Note Type Treatment Note Next Visit Plan assess LLD galf stretch, eversion ex LAQ, bridging glute sterngtehning
--- NOTE | 2020-12-13 16:24 | PT.OTN ---
Current Diagnoses Pain in left knee (12/13/20) Physical Therapy Treatment Note PT-OP-A Visit Information Start: 11/22/20 10:00 Freq: Status: Active Protocol: Document 12/13/20 13:53 HH (Rec: 12/13/20 16:24 [id number]) Out-Patient Physical Therapy Visit Information Visit Information Visit Type Treatment Note Visit Start Time 13:46 Visit Stop Time 14:30 Total Visit Minutes 44 Visit Number 08/01 Number of MASTER SCHEDULER Visits 0 PT-OP-B Current Condition Start: 11/22/20 10:00 Freq: Status: Active Protocol: Document 11/22/20 09:00 HH (Rec: 11/22/20 10:31 [email or web address]) Current Condition History of Current Condition Onset Date early this year Current Complaints L knee pain, unable to run History of Current Condition Flaco is a 70 yo very active male here for his L knee pain early this year. Pt stated his pain started after he ran one day at the medial knee joint line. He described his pain as sharp when he runs which led him to stop and limp after. He also has pain almost every night when he lays down with both legs straight. Rest tends to help so he has stopped running completely since early this year. He is still walking in the community and going to swim again starting from tomorrow. 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 His goal is to be able to run again. Pt's daily ex routine includes push up, sit up, squat and walking. Prior Treatments and Tests 07/16/2020 x-ray on L knee IMPRESSION: Mild medial compartment joint space narrowing. Rtc repair on R shoulder 2017 Current Functional Impairments (Reported) Functional Limitations- Recreation/ unable to run d/t L knee pain Hobbies Personal Factors Other Personal Factors That May Effect previous DVT Therapy/Recovery PT-OP-C Subjective Start: 11/22/20 10:00 Freq: Status: Active Protocol: Document 12/13/20 13:53 HH (Rec: 12/13/20 16:24 [id number]) OP-PT Subjective Patient Comments Patient Comments Im little sore at my knee this morning, but not bad. My night pain seems to get better by the way Patient Reported Progress Improving PT-OP-D Balance Start: 11/22/20 10:00 Freq: Status: Active Protocol: Document 11/22/20 09:00 (Rec: 11/22/20 10:31 [email or web address]) Balance Tests Single Limb Standing Single Limb- Right 33, R foot out, R knee bent Single Limb- Left 31, foot pronation PT-OP-F Manual Assessment Start: 11/22/20 10:00 Freq: Status: Active Protocol: Document 11/22/20 09:00 HH (Rec: 11/22/20 10:31 [email or web address]) Manual Assessments Soft Tissue Assessment Soft Tissue Mobility Assessment mild discomfort to pressure at L medial joint line Joint Mobility Assessment Joint Mobility Assessment hypomobile L calcaneal glide and ankle eversion PT-OP-G Mobility & Gait Start: 11/22/20 10:00 Freq: Status: Active Protocol: Document 11/22/20 09:00 (Rec: 11/22/20 10:31 [email or web address]) OP Gait Assessment Comments Gait Comments RLE= increased knee flexion in swing phase , R toe out during stance phase LLE= slight valgus moment on medial knee during stance phase, slight R hip hike noted PT-OP-K Range of Motion Start: 11/22/20 10:00 Freq: Status: Active Protocol: Document 11/22/20 09:00 (Rec: 11/22/20 10:31 [email or web address]) Knee Goniometric Range of Motion Knee Right Knee ROM WFL Yes Patient Position Supine Flexion Active (degrees) 135 Extension Active (degrees) 5 Left Knee ROM WFL Yes Patient Position Supine Flexion Active (degrees) 130 Extension Active (degrees) 4 Ankle and Foot Goniometric Range of Motion Ankle and Foot Right Active Ankle/Foot ROM WFL Yes Testing Position Supine Dorsiflexion with Knee Flexed 16 Dorsiflexion with Knee Extended 4 Left Active Ankle/Foot ROM WFL Yes Testing Position Supine Dorsiflexion with Knee Flexed 17 Dorsiflexion with Knee Extended 8 PT-OP-L Special Tests Start: 11/22/20 10:00 Freq: Status: Active Protocol: Document 11/22/20 09:00 (Rec: 11/22/20 10:31 [email or web address]) Special Tests Knee Special Tests Varus- 0 Degrees Test Results -ve Varus- 25 Degrees Test Results -ve Valgus- 25 Degrees Test Results +VE Valgus- 0 Degrees Test Results -ve Apley's Compression Test Results +VE with tibial ER Yo Test Test Results +VE with tibial ER PT-OP-M Strength Start: 11/22/20 10:00 Freq: Status: Active Protocol: Document 11/22/20 09:00 HH (Rec: 11/22/20 10:31 HH [email or web address]) Hip Strength Hip Manual Muscle Testing Right Flexion (L2) 5 Normal Extension (S1) 5 Normal Abduction 5 Normal Adduction 5 Normal Left Flexion (L2) 5 Normal Extension (S1) 4+ Good+ Abduction 4+ Good+ Adduction 5 Normal Knee Strength Knee Manual Muscle Testing Right Flexion (S2) 5 Normal Extension (L3) 5 Normal Left Flexion (S2) 4+ Good+ Extension (L3) 4+ Good+ Ankle/Foot Strength Ankle and Foot Manual Muscle Testing Right Dorsiflexion (L4) 5 Normal Plantarflexion (S1) 5 Normal Left Dorsiflexion (L4) 5 Normal Plantarflexion (S1) 5 Normal PT-OP-Q Treatments Start: 11/22/20 10:00 Freq: Status: Active Protocol: Document 12/13/20 13:53 HH (Rec: 12/13/20 16:24 HH [id number]) Cardio Equipment Elliptical Duration (Minutes) 5 Resistance 5 Other no discomfort noted, Slight R knee valgus Gym Equipment Shuttle Recovery leg squat Details SL squat Resistance #50 Shuttle Recovery Platform Stable Reps/Time 15 x 2 Therapeutic Exercises Supine Exercises SLR Supine Exercise Name unilateral Side bilateral Reps/Minutes 10 x2 bridging Equipment Used on red therapy ball Reps/Minutes 10 x 2 Sitting Exercises LAQ Resistance 10lbs ankle weight Reps/Minutes 10 x2, 3 sec top Comments for HEP Standing Exercises RDL Standing Exercise Name unilateral Side bilateral Equipment Used reach for cones. Comments R easier L SLS stance Standing Exercise Name on blue foam Side bilateral Equipment Used blue foam Comments soft knee bent, R easier L step up Resistance 6 inch box Reps/Minutes 10 x2 Comments slight pain for 8box, adjusted to 6 for HEP Manual Therapy Treatment Soft Tissue Mobilization lateral quad Mobilization Type Sustained Pressure,Trigger Point Release Intensity/Depth Moderate Body Position Supine PT-OP-T Assessment and Plan Start: 11/22/20 10:00 Freq: Status: Active Protocol: Document 12/13/20 13:53 HH (Rec: 12/13/20 16:24 HH [id number]) Physical Therapy Assessment Goals HEP Impairment pt does not ahve HEP Short Term Goal (STG) pt will comply to daily HEP to improve his knee strength and mobility therefore he can return to running STG Duration 8 weeks running Impairment pt unable to run since feburary. Short Term Goal (STG) pt will be able to start jogging 1-2 miles x 2 times a week with no increase pain in L knee STG Duration 4 weeks Intermediate Goal (LTG) pt will be able to start jogging 3 miles x 3 times a week with no increase pain in L knee LTG Duration 8 weeks night pain Impairment pt experiences daily night pain at L knee Short Term Goal (STG) pt will have L knee pain no more than 4 nights a week to improve his quality of sleep STG Duration 4weeks Sample Collector Goal (LTG) pt will have L knee pain no more than 2 nights a week to improve his quality of sleep LTG Duration 8 weeks Assessment Summary Assessment pt reports his night pain is better since starting therapy. He still has some discomfort with tibial external rotation. pt shows improved SL stability and strength. He is able to tolerate step up ex but only for 6 box. Will continue to progress to step down related SL ex. Physical Therapy Plan Frequency and Duration Frequency of Treatment 1x/Week Duration of Treatment 8 weeks Plan of Care Start Date 11/22/20 Plan of Care End Date 01/21/21 Therapeutic Interventions Therapeutic Interventions Aquatic Therapy,Balance Training,Gait Training,Home Exercise Program,Joint Mobilizations,Manual Therapy, Neuromuscular Re-education, Patient/Caregiver Education, Self-Care/Home Management,Soft Tissue Mobilization,Taping, Therapeutic Activities, Therapeutic Exercises Modalities Cold Pack/Ice Massage,Electric Stimulation,Hot Packs, Infrared Therapy,Ultrasound Next Visit Focus/Plan Next Note Type Treatment Note Next Visit Plan assess LLD galf stretch, eversion ex LAQ, bridging glute sterngtehning
--- NOTE | 2020-12-17 16:27 | PT.OTN ---
Current Diagnoses Pain in left knee (12/17/20) Physical Therapy Treatment Note PT-OP-A Visit Information Start: 11/22/20 10:00 Freq: Status: Active Protocol: Document 12/17/20 13:51 (Rec: 12/17/20 16:26 [id number]) Out-Patient Physical Therapy Visit Information Visit Information Visit Type Treatment Note Visit Start Time 13:46 Visit Stop Time 14:31 Total Visit Minutes 45 Visit Number 09/01 Number of PLANT TECHNICIAN/CONTROL ROOM OPERATOR Visits 0 PT-OP-B Current Condition Start: 11/22/20 10:00 Freq: Status: Active Protocol: Document 11/22/20 09:00 HH (Rec: 11/22/20 10:31 [email or web address]) Current Condition History of Current Condition Onset Date early this year Current Complaints L knee pain, unable to run History of Current Condition Flaco is a 70 yo very active male here for his L knee pain early this year. Pt stated his pain started after he ran one day at the medial knee joint line. He described his pain as sharp when he runs which led him to stop and limp after. He also has pain almost every night when he lays down with both legs straight. Rest tends to help so he has stopped running completely since early this year. He is still walking in the community and going to swim again starting from tomorrow. 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 His goal is to be able to run again. Pt's daily ex routine includes push up, sit up, squat and walking. Prior Treatments and Tests 07/16/2020 x-ray on L knee IMPRESSION: Mild medial compartment joint space narrowing. Rtc repair on R shoulder 2017 Current Functional Impairments (Reported) Functional Limitations- Recreation/ unable to run d/t L knee pain Hobbies Personal Factors Other Personal Factors That May Effect previous DVT Therapy/Recovery PT-OP-C Subjective Start: 11/22/20 10:00 Freq: Status: Active Protocol: Document 12/17/20 13:51 HH (Rec: 12/17/20 16:26 [id number]) OP-PT Subjective Patient Comments Patient Comments My L knee is diong okay but i still notice a little bit going downstair. Going down with my foot turning in tends to hurt. Patient Reported Progress Improving PT-OP-D Balance Start: 11/22/20 10:00 Freq: Status: Active Protocol: Document 11/22/20 09:00 (Rec: 11/22/20 10:31 [email or web address]) Balance Tests Single Limb Standing Single Limb- Right 33, R foot out, R knee bent Single Limb- Left 31, foot pronation PT-OP-F Manual Assessment Start: 11/22/20 10:00 Freq: Status: Active Protocol: Document 11/22/20 09:00 (Rec: 11/22/20 10:31 [email or web address]) Manual Assessments Soft Tissue Assessment Soft Tissue Mobility Assessment mild discomfort to pressure at L medial joint line Joint Mobility Assessment Joint Mobility Assessment hypomobile L calcaneal glide and ankle eversion PT-OP-G Mobility & Gait Start: 11/22/20 10:00 Freq: Status: Active Protocol: Document 11/22/20 09:00 (Rec: 11/22/20 10:31 [email or web address]) OP Gait Assessment Comments Gait Comments RLE= increased knee flexion in swing phase , R toe out during stance phase LLE= slight valgus moment on medial knee during stance phase, slight R hip hike noted PT-OP-K Range of Motion Start: 11/22/20 10:00 Freq: Status: Active Protocol: Document 11/22/20 09:00 (Rec: 11/22/20 10:31 [email or web address]) Knee Goniometric Range of Motion Knee Right Knee ROM WFL Yes Patient Position Supine Flexion Active (degrees) 135 Extension Active (degrees) 5 Left Knee ROM WFL Yes Patient Position Supine Flexion Active (degrees) 130 Extension Active (degrees) 4 Ankle and Foot Goniometric Range of Motion Ankle and Foot Right Active Ankle/Foot ROM WFL Yes Testing Position Supine Dorsiflexion with Knee Flexed 16 Dorsiflexion with Knee Extended 4 Left Active Ankle/Foot ROM WFL Yes Testing Position Supine Dorsiflexion with Knee Flexed 17 Dorsiflexion with Knee Extended 8 PT-OP-L Special Tests Start: 11/22/20 10:00 Freq: Status: Active Protocol: Document 11/22/20 09:00 (Rec: 11/22/20 10:31 [email or web address]) Special Tests Knee Special Tests Varus- 0 Degrees Test Results -ve Varus- 25 Degrees Test Results -ve Valgus- 25 Degrees Test Results +VE Valgus- 0 Degrees Test Results -ve Apley's Compression Test Results +VE with tibial ER Yo Test Test Results +VE with tibial ER PT-OP-M Strength Start: 11/22/20 10:00 Freq: Status: Active Protocol: Document 11/22/20 09:00 (Rec: 11/22/20 10:31 HH [email or web address]) Hip Strength Hip Manual Muscle Testing Right Flexion (L2) 5 Normal Extension (S1) 5 Normal Abduction 5 Normal Adduction 5 Normal Left Flexion (L2) 5 Normal Extension (S1) 4+ Good+ Abduction 4+ Good+ Adduction 5 Normal Knee Strength Knee Manual Muscle Testing Right Flexion (S2) 5 Normal Extension (L3) 5 Normal Left Flexion (S2) 4+ Good+ Extension (L3) 4+ Good+ Ankle/Foot Strength Ankle and Foot Manual Muscle Testing Right Dorsiflexion (L4) 5 Normal Plantarflexion (S1) 5 Normal Left Dorsiflexion (L4) 5 Normal Plantarflexion (S1) 5 Normal PT-OP-Q Treatments Start: 11/22/20 10:00 Freq: Status: Active Protocol: Document 12/17/20 13:51 (Rec: 12/17/20 16:26 [id number]) Cardio Equipment Elliptical Duration (Minutes) 4 Resistance 5 Other no discomfort noted, Slight R knee valgus Treadmill Duration (Minutes) 6 Speed 3-6.3 Incline 0 Other R knee valgus with R foot overpronation. Therapeutic Exercises Supine Exercises bridging Equipment Used on red therapy ball Reps/Minutes 10 x 2 Sidelying Exercises hip abd Side bilateral Reps/Minutes 10 x2 Standing Exercises step down Equipment Used 4 inch step Reps/Minutes 10 x2 Comments no discomfort. RDL Standing Exercise Name unilateral Side bilateral Equipment Used reach for cones. Comments R easier L SLS stance Standing Exercise Name on blue foam Side bilateral Equipment Used blue foam Comments soft knee bent, R easier L step up Resistance 6 inch box Reps/Minutes 10 x2 Comments slight pain for 8box, adjusted to 6 for HEP PT-OP-T Assessment and Plan Start: 11/22/20 10:00 Freq: Status: Active Protocol: Document 12/17/20 13:51 (Rec: 12/17/20 16:26 [id number]) Physical Therapy Assessment Goals HEP Impairment pt does not ahve HEP Short Term Goal (STG) pt will comply to daily HEP to improve his knee strength and mobility therefore he can return to running STG Duration 8 weeks running Impairment pt unable to run since feburary. Short Term Goal (STG) pt will be able to start jogging 1-2 miles x 2 times a week with no increase pain in L knee STG Duration 4 weeks Neurosurgical Physician Assistant Goal (LTG) pt will be able to start jogging 3 miles x 3 times a week with no increase pain in L knee LTG Duration 8 weeks night pain Impairment pt experiences daily night pain at L knee Short Term Goal (STG) pt will have L knee pain no more than 4 nights a week to improve his quality of sleep STG Duration 4weeks Snf Goal (LTG) pt will have L knee pain no more than 2 nights a week to improve his quality of sleep LTG Duration 8 weeks Assessment Summary Assessment Pt reports discomfort generally reduced but some discomfort on going downhill. Added step down on 4step today and he has no c/o. Did running assessment, and noticed pt has WB more on LLE who stated possibly d/t his previous R knee injury. Will reassess again next visit. Physical Therapy Plan Frequency and Duration Frequency of Treatment 1x/Week Duration of Treatment 8 weeks Plan of Care Start Date 11/22/20 Plan of Care End Date 01/21/21 Therapeutic Interventions Therapeutic Interventions Aquatic Therapy,Balance Training,Gait Training,Home Exercise Program,Joint Mobilizations,Manual Therapy, Neuromuscular Re-education, Patient/Caregiver Education, Self-Care/Home Management,Soft Tissue Mobilization,Taping, Therapeutic Activities, Therapeutic Exercises Modalities Cold Pack/Ice Massage,Electric Stimulation,Hot Packs, Infrared Therapy,Ultrasound Next Visit Focus/Plan Next Note Type Treatment Note Next Visit Plan assess LLD galf stretch, eversion ex LAQ, bridging glute sterngtehning
--- NOTE | 2020-12-24 14:33 | PT.OTN ---
Current Diagnoses Pain in left knee (12/24/20) Physical Therapy Treatment Note PT-OP-A Visit Information Start: 11/22/20 10:00 Freq: Status: Active Protocol: Document 12/24/20 13:46 (Rec: 12/24/20 14:33 [id number]) Out-Patient Physical Therapy Visit Information Visit Information Visit Type Treatment Note Visit Start Time 13:48 Visit Stop Time 14:30 Total Visit Minutes 42 Visit Number 10/01 Number of PSYCHIATRIC NURSE PRACTITIONER Visits 0 PT-OP-B Current Condition Start: 11/22/20 10:00 Freq: Status: Active Protocol: Document 11/22/20 09:00 HH (Rec: 11/22/20 10:31 [email or web address]) Current Condition History of Current Condition Onset Date early this year Current Complaints L knee pain, unable to run History of Current Condition Flaco is a 70 yo very active male here for his L knee pain early this year. Pt stated his pain started after he ran one day at the medial knee joint line. He described his pain as sharp when he runs which led him to stop and limp after. He also has pain almost every night when he lays down with both legs straight. Rest tends to help so he has stopped running completely since early this year. He is still walking in the community and going to swim again starting from tomorrow. 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 His goal is to be able to run again. Pt's daily ex routine includes push up, sit up, squat and walking. Prior Treatments and Tests 07/16/2020 x-ray on L knee IMPRESSION: Mild medial compartment joint space narrowing. Rtc repair on R shoulder 2016 Current Functional Impairments (Reported) Functional Limitations- Recreation/ unable to run d/t L knee pain Hobbies Personal Factors Other Personal Factors That May Effect previous DVT Therapy/Recovery PT-OP-C Subjective Start: 11/22/20 10:00 Freq: Status: Active Protocol: Document 12/24/20 13:46 HH (Rec: 12/24/20 14:33 [id number]) OP-PT Subjective Patient Comments Patient Comments My L knee was sore after the run last visit. I was sore for 2 days and i think the impact from running triggered it. Patient Reported Progress Improving PT-OP-D Balance Start: 11/22/20 10:00 Freq: Status: Active Protocol: Document 11/22/20 09:00 (Rec: 11/22/20 10:31 [email or web address]) Balance Tests Single Limb Standing Single Limb- Right 33, R foot out, R knee bent Single Limb- Left 31, foot pronation PT-OP-F Manual Assessment Start: 11/22/20 10:00 Freq: Status: Active Protocol: Document 11/22/20 09:00 (Rec: 11/22/20 10:31 [email or web address]) Manual Assessments Soft Tissue Assessment Soft Tissue Mobility Assessment mild discomfort to pressure at L medial joint line Joint Mobility Assessment Joint Mobility Assessment hypomobile L calcaneal glide and ankle eversion PT-OP-G Mobility & Gait Start: 11/22/20 10:00 Freq: Status: Active Protocol: Document 11/22/20 09:00 (Rec: 11/22/20 10:31 [email or web address]) OP Gait Assessment Comments Gait Comments RLE= increased knee flexion in swing phase , R toe out during stance phase LLE= slight valgus moment on medial knee during stance phase, slight R hip hike noted PT-OP-K Range of Motion Start: 11/22/20 10:00 Freq: Status: Active Protocol: Document 11/22/20 09:00 (Rec: 11/22/20 10:31 [email or web address]) Knee Goniometric Range of Motion Knee Right Knee ROM WFL Yes Patient Position Supine Flexion Active (degrees) 135 Extension Active (degrees) 5 Left Knee ROM WFL Yes Patient Position Supine Flexion Active (degrees) 130 Extension Active (degrees) 4 Ankle and Foot Goniometric Range of Motion Ankle and Foot Right Active Ankle/Foot ROM WFL Yes Testing Position Supine Dorsiflexion with Knee Flexed 16 Dorsiflexion with Knee Extended 4 Left Active Ankle/Foot ROM WFL Yes Testing Position Supine Dorsiflexion with Knee Flexed 17 Dorsiflexion with Knee Extended 8 PT-OP-L Special Tests Start: 11/22/20 10:00 Freq: Status: Active Protocol: Document 11/22/20 09:00 (Rec: 11/22/20 10:31 [email or web address]) Special Tests Knee Special Tests Varus- 0 Degrees Test Results -ve Varus- 25 Degrees Test Results -ve Valgus- 25 Degrees Test Results +VE Valgus- 0 Degrees Test Results -ve Apley's Compression Test Results +VE with tibial ER Yo Test Test Results +VE with tibial ER PT-OP-M Strength Start: 11/22/20 10:00 Freq: Status: Active Protocol: Document 11/22/20 09:00 HH (Rec: 11/22/20 10:31 HH [email or web address]) Hip Strength Hip Manual Muscle Testing Right Flexion (L2) 5 Normal Extension (S1) 5 Normal Abduction 5 Normal Adduction 5 Normal Left Flexion (L2) 5 Normal Extension (S1) 4+ Good+ Abduction 4+ Good+ Adduction 5 Normal Knee Strength Knee Manual Muscle Testing Right Flexion (S2) 5 Normal Extension (L3) 5 Normal Left Flexion (S2) 4+ Good+ Extension (L3) 4+ Good+ Ankle/Foot Strength Ankle and Foot Manual Muscle Testing Right Dorsiflexion (L4) 5 Normal Plantarflexion (S1) 5 Normal Left Dorsiflexion (L4) 5 Normal Plantarflexion (S1) 5 Normal PT-OP-Q Treatments Start: 11/22/20 10:00 Freq: Status: Active Protocol: Document 12/24/20 13:46 (Rec: 12/24/20 14:33 [id number]) Cardio Equipment Elliptical Duration (Minutes) 4 Resistance 5 Other no discomfort noted, Slight R knee valgus Gym Equipment Cable Column (Body Solid) quad extension Resistance 30lbs Reps/Time 12 x 2 sets Shuttle Recovery SL squat Details pylo Resistance #25 to 37 Reps/Time 6 x5, cues on soft landing leg squat Details SL squat Resistance #75 Shuttle Recovery Platform Stable Reps/Time 15 x 2 Therapeutic Exercises Standing Exercises eccentric landing. Standing Exercise Name landing with LLE eccentric control. step down Equipment Used 4 inch step Reps/Minutes 10 x2 Comments no discomfort. RDL Standing Exercise Name unilateral Side bilateral Comments blue foam, static SL stance SLS stance Standing Exercise Name on blue foam Side bilateral Equipment Used blue foam Comments soft knee bent, R easier L step up Resistance 6 inch box Reps/Minutes 10 x2 Comments slight pain for 8box, adjusted to 6 for HEP PT-OP-T Assessment and Plan Start: 11/22/20 10:00 Freq: Status: Active Protocol: Document 12/24/20 13:46 (Rec: 12/24/20 14:33 HH [id number]) Physical Therapy Assessment Goals HEP Impairment pt does not ahve HEP Short Term Goal (STG) pt will comply to daily HEP to improve his knee strength and mobility therefore he can return to running STG Duration 8 weeks running Impairment pt unable to run since feburary. Short Term Goal (STG) pt will be able to start jogging 1-2 miles x 2 times a week with no increase pain in L knee STG Duration 4 weeks Group Home Goal (LTG) pt will be able to start jogging 3 miles x 3 times a week with no increase pain in L knee LTG Duration 8 weeks night pain Impairment pt experiences daily night pain at L knee Short Term Goal (STG) pt will have L knee pain no more than 4 nights a week to improve his quality of sleep STG Duration 4weeks Group Home Goal (LTG) pt will have L knee pain no more than 2 nights a week to improve his quality of sleep LTG Duration 8 weeks Assessment Summary Assessment pt has a flare up after running assessment from last time. Decrease intensitiy today and did pylometric on shuttle recovery instead plus lateral hop to focus on eccentric landing. Pt edilia session well with report of slight pressure at medial knee joint. Physical Therapy Plan Frequency and Duration Frequency of Treatment 1x/Week Duration of Treatment 8 weeks Plan of Care Start Date 11/22/20 Plan of Care End Date 01/21/21 Therapeutic Interventions Therapeutic Interventions Aquatic Therapy,Balance Training,Gait Training,Home Exercise Program,Joint Mobilizations,Manual Therapy, Neuromuscular Re-education, Patient/Caregiver Education, Self-Care/Home Management,Soft Tissue Mobilization,Taping, Therapeutic Activities, Therapeutic Exercises Modalities Cold Pack/Ice Massage,Electric Stimulation,Hot Packs, Infrared Therapy,Ultrasound Next Visit Focus/Plan Next Note Type Treatment Note Next Visit Plan assess LLD galf stretch, eversion ex LAQ, bridging glute sterngtehning
--- NOTE | 2020-12-31 09:50 | PT.OTN ---
Current Diagnoses Pain in left knee (12/31/20) Physical Therapy Treatment Note PT-OP-A Visit Information Start: 11/22/20 10:00 Freq: Status: Active Protocol: Document 12/31/20 08:56 SP (Rec: 12/31/20 09:51 SP [id number]) Out-Patient Physical Therapy Visit Information Visit Information Visit Type Treatment Note Visit Start Time 09:00 Visit Stop Time 09:50 Total Visit Minutes 50 Visit Number 11/01 Number of RESOURCE AGENT Visits 1 Evaluation Information Evaluation Date 11/22/20 PT-OP-B Current Condition Start: 11/22/20 10:00 Freq: Status: Active Protocol: Document 11/22/20 09:00 HH (Rec: 11/22/20 10:31 HH [email or web address]) Current Condition History of Current Condition Onset Date early this year Current Complaints L knee pain, unable to run History of Current Condition Flaco is a 70 yo very active male here for his L knee pain early this year. Pt stated his pain started after he ran one day at the medial knee joint line. He described his pain as sharp when he runs which led him to stop and limp after. He also has pain almost every night when he lays down with both legs straight. Rest tends to help so he has stopped running completely since early this year. He is still walking in the community and going to swim again starting from tomorrow. 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 His goal is to be able to run again. Pt's daily ex routine includes push up, sit up, squat and walking. Prior Treatments and Tests 07/16/2020 x-ray on L knee IMPRESSION: Mild medial compartment joint space narrowing. Rtc repair on R shoulder 2017 Current Functional Impairments (Reported) Functional Limitations- Recreation/ unable to run d/t L knee pain Hobbies Personal Factors Other Personal Factors That May Effect previous DVT Therapy/Recovery PT-OP-C Subjective Start: 11/22/20 10:00 Freq: Status: Active Protocol: Document 12/31/20 08:56 SP (Rec: 12/31/20 09:51 SP [id number]) OP-PT Subjective Patient Comments Patient Comments I feel much better, compliant no problems with wt shifting HEP and after last tx, no L knee discomfort. PT-OP-D Balance Start: 11/22/20 10:00 Freq: Status: Active Protocol: Document 11/22/20 09:00 (Rec: 11/22/20 10:31 [email or web address]) Balance Tests Single Limb Standing Single Limb- Right 33, R foot out, R knee bent Single Limb- Left 31, foot pronation PT-OP-F Manual Assessment Start: 11/22/20 10:00 Freq: Status: Active Protocol: Document 11/22/20 09:00 (Rec: 11/22/20 10:31 [email or web address]) Manual Assessments Soft Tissue Assessment Soft Tissue Mobility Assessment mild discomfort to pressure at L medial joint line Joint Mobility Assessment Joint Mobility Assessment hypomobile L calcaneal glide and ankle eversion PT-OP-G Mobility & Gait Start: 11/22/20 10:00 Freq: Status: Active Protocol: Document 11/22/20 09:00 (Rec: 11/22/20 10:31 [email or web address]) OP Gait Assessment Comments Gait Comments RLE= increased knee flexion in swing phase , R toe out during stance phase LLE= slight valgus moment on medial knee during stance phase, slight R hip hike noted PT-OP-K Range of Motion Start: 11/22/20 10:00 Freq: Status: Active Protocol: Document 11/22/20 09:00 (Rec: 11/22/20 10:31 [email or web address]) Knee Goniometric Range of Motion Knee Right Knee ROM WFL Yes Patient Position Supine Flexion Active (degrees) 135 Extension Active (degrees) 5 Left Knee ROM WFL Yes Patient Position Supine Flexion Active (degrees) 130 Extension Active (degrees) 4 Ankle and Foot Goniometric Range of Motion Ankle and Foot Right Active Ankle/Foot ROM WFL Yes Testing Position Supine Dorsiflexion with Knee Flexed 16 Dorsiflexion with Knee Extended 4 Left Active Ankle/Foot ROM WFL Yes Testing Position Supine Dorsiflexion with Knee Flexed 17 Dorsiflexion with Knee Extended 8 PT-OP-L Special Tests Start: 11/22/20 10:00 Freq: Status: Active Protocol: Document 11/22/20 09:00 (Rec: 11/22/20 10:31 [email or web address]) Special Tests Knee Special Tests Varus- 0 Degrees Test Results -ve Varus- 25 Degrees Test Results -ve Valgus- 25 Degrees Test Results +VE Valgus- 0 Degrees Test Results -ve Apley's Compression Test Results +VE with tibial ER Yo Test Test Results +VE with tibial ER PT-OP-M Strength Start: 11/22/20 10:00 Freq: Status: Active Protocol: Document 11/22/20 09:00 HH (Rec: 11/22/20 10:31 HH [email or web address]) Hip Strength Hip Manual Muscle Testing Right Flexion (L2) 5 Normal Extension (S1) 5 Normal Abduction 5 Normal Adduction 5 Normal Left Flexion (L2) 5 Normal Extension (S1) 4+ Good+ Abduction 4+ Good+ Adduction 5 Normal Knee Strength Knee Manual Muscle Testing Right Flexion (S2) 5 Normal Extension (L3) 5 Normal Left Flexion (S2) 4+ Good+ Extension (L3) 4+ Good+ Ankle/Foot Strength Ankle and Foot Manual Muscle Testing Right Dorsiflexion (L4) 5 Normal Plantarflexion (S1) 5 Normal Left Dorsiflexion (L4) 5 Normal Plantarflexion (S1) 5 Normal PT-OP-Q Treatments Start: 11/22/20 10:00 Freq: Status: Active Protocol: Document 12/31/20 08:56 SP (Rec: 12/31/20 09:51 SP [id number]) Cardio Equipment Treadmill Duration (Minutes) 5 Speed 3> 3.5 Incline 0 Other .29 miles, pressure L medial knee but painfree Gym Equipment Cable Column (Body Solid) quad extension Details L>R LE alternating- good quad fatigue painfree Resistance 30lbs Reps/Time 15 x 2 sets Shuttle Recovery SL squat Details pylo Resistance #25 to 37 Reps/Time 12x3, cues on soft landing- little medial knee pressure better w/ align cue leg squat Details SL squat- ed knee alignment w/ mid foot Resistance #75 Shuttle Recovery Platform Stable Reps/Time 15 x 2 Therapeutic Exercises Standing Exercises band walk Standing Exercise Name lateral: added to HEP Resistance YTB Reps/Minutes 20 ft x3 Comments improved knee alignment control, good hip abd fac reported results step down Standing Exercise Name forward/ lateral Side left Equipment Used 4 inch step Reps/Minutes 10 x2 Comments no discomfort, quad tiring- cued knee align w/ behind toes RDL Standing Exercise Name unilateral Side bilateral Equipment Used holding dowel front, static SL stance- challenged firm surface Reps/Minutes 2 reps x4 sets Comments improved little cues core & hip abd fac in front mirror SLS stance Standing Exercise Name on blue foam Side bilateral Equipment Used blue foam, mirror Comments soft knee bent, R easier L PT-OP-T Assessment and Plan Start: 11/22/20 10:00 Freq: Status: Active Protocol: Document 12/31/20 08:56 SP (Rec: 12/31/20 09:51 SP [id number]) Physical Therapy Assessment Goals HEP Impairment pt does not ahve HEP Short Term Goal (STG) pt will comply to daily HEP to improve his knee strength and mobility therefore he can return to running STG Duration 8 weeks running Impairment pt unable to run since feburary. Short Term Goal (STG) pt will be able to start jogging 1-2 miles x 2 times a week with no increase pain in L knee STG Duration 4 weeks Senior Living Goal (LTG) pt will be able to start jogging 3 miles x 3 times a week with no increase pain in L knee LTG Duration 8 weeks night pain Impairment pt experiences daily night pain at L knee Short Term Goal (STG) pt will have L knee pain no more than 4 nights a week to improve his quality of sleep STG Duration 4weeks Testing Lead Goal (LTG) pt will have L knee pain no more than 2 nights a week to improve his quality of sleep LTG Duration 8 weeks Assessment Summary Assessment Tx reviewed HEP step down, SLS , dicussed supine ex but not performed. RDLs noted challenged with SLS L>R LE knee alignment, improved with mirror for self feedback and holding dowel front, cues for hip hinge knee alignment with/ behind toes. Initiated dynamic band walk at ankles with good feedback results hip abd facilitation and understanding assists with knee alignment. Didnt' give hand out but stated can do at home with previously given loop. Recheck next tx. No pain just little pressure medial L knee during ther ex. Physical Therapy Plan Frequency and Duration Frequency of Treatment 1x/Week Duration of Treatment 8 weeks Plan of Care Start Date 11/22/20 Plan of Care End Date 01/21/21 Therapeutic Interventions Therapeutic Interventions Aquatic Therapy,Balance Training,Gait Training,Home Exercise Program,Joint Mobilizations,Manual Therapy, Neuromuscular Re-education, Patient/Caregiver Education, Self-Care/Home Management,Soft Tissue Mobilization,Taping, Therapeutic Activities, Therapeutic Exercises Modalities Cold Pack/Ice Massage,Electric Stimulation,Hot Packs, Infrared Therapy,Ultrasound Next Visit Focus/Plan Next Note Type Treatment Note Next Visit Plan assess LLD galf stretch, eversion ex LAQ, bridging glute sterngtehning
--- NOTE | 2021-01-09 16:30 | PT.OTN ---
Current Diagnoses Pain in left knee (01/09/21) Physical Therapy Treatment Note PT-OP-A Visit Information Start: 11/22/20 10:00 Freq: Status: Active Protocol: Document 01/09/21 14:30 HH (Rec: 01/09/21 16:30 [id number]) Out-Patient Physical Therapy Visit Information Visit Information Visit Type Treatment Note Visit Start Time 14:32 Visit Stop Time 15:15 Total Visit Minutes 43 Visit Number 12/02 Number of HEALTH AND SAFETY SPECIALIST Visits 0 PT-OP-B Current Condition Start: 11/22/20 10:00 Freq: Status: Active Protocol: Document 11/22/20 09:00 HH (Rec: 11/22/20 10:31 [email or web address]) Current Condition History of Current Condition Onset Date early this year Current Complaints L knee pain, unable to run History of Current Condition Flaco is a 70 yo very active male here for his L knee pain early this year. Pt stated his pain started after he ran one day at the medial knee joint line. He described his pain as sharp when he runs which led him to stop and limp after. He also has pain almost every night when he lays down with both legs straight. Rest tends to help so he has stopped running completely since early this year. He is still walking in the community and going to swim again starting from tomorrow. 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 His goal is to be able to run again. Pt's daily ex routine includes push up, sit up, squat and walking. Prior Treatments and Tests 07/16/2020 x-ray on L knee IMPRESSION: Mild medial compartment joint space narrowing. Rtc repair on R shoulder 2017 Current Functional Impairments (Reported) Functional Limitations- Recreation/ unable to run d/t L knee pain Hobbies Personal Factors Other Personal Factors That May Effect previous DVT Therapy/Recovery PT-OP-C Subjective Start: 11/22/20 10:00 Freq: Status: Active Protocol: Document 01/09/21 14:30 HH (Rec: 01/09/21 16:30 [id number]) OP-PT Subjective Patient Comments Patient Comments Camelia done a lot of walking for the past week. I was getting 16-19k steps per day. My knee didnt feel too bad. However, the last session here was too hard for me. PT-OP-D Balance Start: 11/22/20 10:00 Freq: Status: Active Protocol: Document 11/22/20 09:00 (Rec: 11/22/20 10:31 [email or web address]) Balance Tests Single Limb Standing Single Limb- Right 33, R foot out, R knee bent Single Limb- Left 31, foot pronation PT-OP-F Manual Assessment Start: 11/22/20 10:00 Freq: Status: Active Protocol: Document 11/22/20 09:00 (Rec: 11/22/20 10:31 [email or web address]) Manual Assessments Soft Tissue Assessment Soft Tissue Mobility Assessment mild discomfort to pressure at L medial joint line Joint Mobility Assessment Joint Mobility Assessment hypomobile L calcaneal glide and ankle eversion PT-OP-G Mobility & Gait Start: 11/22/20 10:00 Freq: Status: Active Protocol: Document 11/22/20 09:00 (Rec: 11/22/20 10:31 [email or web address]) OP Gait Assessment Comments Gait Comments RLE= increased knee flexion in swing phase , R toe out during stance phase LLE= slight valgus moment on medial knee during stance phase, slight R hip hike noted PT-OP-K Range of Motion Start: 11/22/20 10:00 Freq: Status: Active Protocol: Document 11/22/20 09:00 (Rec: 11/22/20 10:31 [email or web address]) Knee Goniometric Range of Motion Knee Right Knee ROM WFL Yes Patient Position Supine Flexion Active (degrees) 135 Extension Active (degrees) 5 Left Knee ROM WFL Yes Patient Position Supine Flexion Active (degrees) 130 Extension Active (degrees) 4 Ankle and Foot Goniometric Range of Motion Ankle and Foot Right Active Ankle/Foot ROM WFL Yes Testing Position Supine Dorsiflexion with Knee Flexed 16 Dorsiflexion with Knee Extended 4 Left Active Ankle/Foot ROM WFL Yes Testing Position Supine Dorsiflexion with Knee Flexed 17 Dorsiflexion with Knee Extended 8 PT-OP-L Special Tests Start: 11/22/20 10:00 Freq: Status: Active Protocol: Document 11/22/20 09:00 (Rec: 11/22/20 10:31 [email or web address]) Special Tests Knee Special Tests Varus- 0 Degrees Test Results -ve Varus- 25 Degrees Test Results -ve Valgus- 25 Degrees Test Results +VE Valgus- 0 Degrees Test Results -ve Apley's Compression Test Results +VE with tibial ER Chantell Test Test Results +VE with tibial ER PT-OP-M Strength Start: 11/22/20 10:00 Freq: Status: Active Protocol: Document 11/22/20 09:00 HH (Rec: 11/22/20 10:31 HH [email or web address]) Hip Strength Hip Manual Muscle Testing Right Flexion (L2) 5 Normal Extension (S1) 5 Normal Abduction 5 Normal Adduction 5 Normal Left Flexion (L2) 5 Normal Extension (S1) 4+ Good+ Abduction 4+ Good+ Adduction 5 Normal Knee Strength Knee Manual Muscle Testing Right Flexion (S2) 5 Normal Extension (L3) 5 Normal Left Flexion (S2) 4+ Good+ Extension (L3) 4+ Good+ Ankle/Foot Strength Ankle and Foot Manual Muscle Testing Right Dorsiflexion (L4) 5 Normal Plantarflexion (S1) 5 Normal Left Dorsiflexion (L4) 5 Normal Plantarflexion (S1) 5 Normal PT-OP-Q Treatments Start: 11/22/20 10:00 Freq: Status: Active Protocol: Document 01/09/21 14:30 HH (Rec: 01/09/21 16:30 HH [id number]) Cardio Equipment Elliptical Duration (Minutes) 4 Resistance 5 Other no discomfort noted, Slight R knee valgus Therapeutic Exercises Standing Exercises lateral hop Side bilateral Reps/Minutes 10 x2 Comments focus on SL landing bouncing Standing Exercise Name on toes Reps/Minutes 30 times SL squat Standing Exercise Name from 26 inch table. Reps/Minutes 8 x2 Comments without shoes, balance improved at the end squat Side bilateral Equipment Used red band on knees Reps/Minutes 10x2 Comments for warm up band walk Standing Exercise Name lateral: band on ankles Resistance red Reps/Minutes 20 ft x3 Comments improved knee alignment control, good hip abd fac reported results eccentric landing. Standing Exercise Name landing with LLE eccentric control. Comments full stand to single leg squat position, step down Standing Exercise Name forward/ lateral Side left Equipment Used 4 inch step Reps/Minutes 10 x2 Comments no discomfort, quad tiring- cued knee align w/ behind toes RDL Standing Exercise Name unilateral Side bilateral Equipment Used holding dowel front, static SL stance- challenged firm surface Reps/Minutes 8 x2 Comments with hamstrings bias PT-OP-T Assessment and Plan Start: 11/22/20 10:00 Freq: Status: Active Protocol: Document 01/09/21 14:30 (Rec: 01/09/21 16:30 [id number]) Physical Therapy Assessment Goals HEP Impairment pt does not ahve HEP Short Term Goal (STG) pt will comply to daily HEP to improve his knee strength and mobility therefore he can return to running STG Duration 8 weeks running Impairment pt unable to run since feburary. Short Term Goal (STG) pt will be able to start jogging 1-2 miles x 2 times a week with no increase pain in L knee STG Duration 4 weeks Dial Equipment Engineer Goal (LTG) pt will be able to start jogging 3 miles x 3 times a week with no increase pain in L knee LTG Duration 8 weeks night pain Impairment pt experiences daily night pain at L knee Short Term Goal (STG) pt will have L knee pain no more than 4 nights a week to improve his quality of sleep STG Duration 4weeks Dial Equipment Engineer Goal (LTG) pt will have L knee pain no more than 2 nights a week to improve his quality of sleep LTG Duration 8 weeks Assessment Summary Assessment pt reports he did 16-19k steps a day for the past week and did feel slight discomfort at medial knee. His chantell and apley compression are negative today. He completed session with focus on quad strnegthening, eccentric landing and pylometric and he only c/o slight comfort. This is his last appointment and I will call him in 2 weeks to check his progress Physical Therapy Plan Frequency and Duration Frequency of Treatment 1x/Week Duration of Treatment 8 weeks Plan of Care Start Date 11/22/20 Plan of Care End Date 01/21/21 Therapeutic Interventions Therapeutic Interventions Aquatic Therapy,Balance Training,Gait Training,Home Exercise Program,Joint Mobilizations,Manual Therapy, Neuromuscular Re-education, Patient/Caregiver Education, Self-Care/Home Management,Soft Tissue Mobilization,Taping, Therapeutic Activities, Therapeutic Exercises Modalities Cold Pack/Ice Massage,Electric Stimulation,Hot Packs, Infrared Therapy,Ultrasound Next Visit Focus/Plan Next Note Type Treatment Note Next Visit Plan assess LLD galf stretch, eversion ex LAQ, bridging glute sterngtehning
--- NOTE | 2021-01-22 14:08 | PT.OPDS ---
Current Diagnoses Pain in left knee (01/09/21) Visit Care Team Role Provider Type Wally Sierra DO Attending Provider Physician Family Provider Primary Care Provider Referring Provider Specialty: Family Practice Address: [address] [place] [address], [facility] Email: Visit Number Visit Number 12/02 Discharge Summary PT-OP-T Assessment and Plan Start: 11/22/20 10:00 Freq: Status: Active Protocol: Document 01/22/21 14:07 (Rec: 01/22/21 14:08 [email or web address]) Physical Therapy Plan Discharge Physical Therapy Discharge Reasons No Longer Attending PT Discharge Comments pt no longer attending PT and he is leaving for [place] for > 4 months. DC from PT today.
== END 2021-01-23 14:05 ==
LOC: PHYS 14:30
PROVIDERS: Family Provider Family Medicine; PCP Family Medicine; Referring Provider Family Medicine; Visit Provider Family Medicine
DX: M25.562 Pain in left knee (principal)
CPT/HCPCS: 97110; 97140; 97161

== ENCOUNTER → 2021-01-16 08:15 | Outpatient (CLI) | payer MEDICARE, SELFPAY ==
[2021-01-16 09:11] LABS: Add Manual Diff / Slide Review NO; Basophils Absolute Auto 0 /uL (0-100); Basophils Percent Auto 0.5 % (0-2); Eosinophils Absolute Auto 100 /uL (0-450); Eosinophils Percent Auto 3.3 % (2-4); Hematocrit 41.6 % (41-53); Hemoglobin 14.5 g/dL (13.5-17.5); Lymphocytes Absolute Auto 1200 /uL (1100-4500); Lymphocytes Percent Auto 40.1 % (25-40); Mean Corpuscular HGB Conc 34.9 % (30-36); Mean Corpuscular Hemoglobin 32.2 PG (26-34); Mean Corpuscular Volume 92.4 fL (80-100); Monocytes Absolute Auto 300 /uL (0-900); Monocytes Percent Auto 9.9 % (3-14); Neutrophils Absolute Auto 1400 /uL (1500-7000); Neutrophils Percent Auto 46.2 % (50-75); Platelet Count 155 X10^3/uL (150-400)
[2021-01-16 10:14] LABS: Alanine Aminotransferase 23 IU/L (<50); Albumin 4.5 g/dL (3.5-5.0); Albumin Globulin Ratio 1.9 (1.0-2.8); Alkaline Phosphatase 54 U/L (38-126); Aspartate Aminotransferase 32 IU/L (17-59); BUN Creatinine Ratio 22.5 (6-22); Bilirubin Total 0.3 mg/dL (0.2-1.3); Blood Urea Nitrogen 20 mg/dL (9-20); Calcium 9.2 mg/dL (8.4-10.2); Carbon Dioxide 27 mmol/L (22-32); Chloride 105 mmol/L (98-107); Cholesterol 131 mg/dL (140-199); Estimated Glomerular Filt Rate > 60.0 mL/min (>60); Globulin 2.4 g/dL (1.7-4.1); Glucose 93 mg/dL (80-110); HDL Cholesterol 82 mg/dL (40-60); HEMOLYSIS < 15 (0-50); LDL Cholesterol Calculated 30 mg/dL (<100); Potassium 4.3 mmol/L (3.4-5.1); Sodium 139 mmol/L (137-145); Total Protein 6.9 g/dL (6.3-8.2); Triglycerides 95 mg/dL (35-150)
[2021-01-16 10:42] LABS: Prostate Specific Antigen Scrn 0.512 ng/mL (0.1-4.0)
== END ==
PROVIDERS: Family Provider Family Medicine; PCP Family Medicine; Referring Provider Family Medicine; Visit Provider Family Medicine
DX: I10 Essential (primary) hypertension (principal); Z12.5 Encounter for screening for malignant neoplasm of prostate; Z13.220 Encounter for screening for lipoid disorders; Z86.718 Personal history of other venous thrombosis and embolism
CPT/HCPCS: 36415; 80053; 80061; 85025; G0103

== ENCOUNTER → 2021-10-29 07:13 | Outpatient (CLI) | payer MEDICARE, SELFPAY ==
--- NOTE | 2021-10-29 07:15 | DI.US.S_ITS ---
PROCEDURE: US [facility] VENOUS LOW EXTREM LT INDICATIONS: CHRONIC DVT TECHNIQUE: Real-time imaging, as well as color and pulse Doppler interrogation, were performed of the lower extremity deep veins from the inguinal ligament to the popliteal fossa. COMPARISON: [facility], [facility] VENOUS LOW EXTREM LT, 08/15/2020, 10:13. FINDINGS: There is intraluminal filling defect within proximal left superficial femoral vein, popliteal vein and peroneal vein. Posterior tibial vein is not visualized on this study. Absence of flow in popliteal vein and peroneal vein is seen on the current study. IMPRESSION: 1. Persistent nonocclusive chronic venous thrombosis in left superficial femoral vein. 2. Occlusive venous thrombosis in left popliteal vein and left peroneal vein not significantly changed from previous study. Dictated by: Timothy Aquino M.D. on 10/29/2021 at 8:39 Approved by: Timothy Aquino M.D. on 10/29/2021 at 8:43
== END ==
PROVIDERS: Family Provider Family Medicine; PCP Family Medicine; Referring Provider Registered Nurse Diabetes Educator; Visit Provider Registered Nurse Diabetes Educator
DX: I82.532 Chronic embolism and thrombosis of left popliteal vein (principal); I82.812 Embolism and thrombosis of superficial veins of left lower extremity
CPT/HCPCS: 93971

== ENCOUNTER → 2021-12-19 11:54 | Outpatient (CLI) | payer MEDICARE, SELFPAY ==
[2021-12-19 13:18] LABS: COVID19 -Nasal RAPID Negative (Negative)
== END ==
PROVIDERS: Family Provider Family Medicine; PCP Family Medicine; Visit Provider Surgery
DX: Z20.822 Contact with and (suspected) exposure to COVID-19 (principal); Z01.812 Encounter for preprocedural laboratory examination
CPT/HCPCS: 87635; C9803

== ENCOUNTER 2021-12-20 14:03 | Day surgery (SDC) | payer MEDICARE, SELFPAY ==
[2021-12-16 15:12] VITALS: BMI 25.2
[2021-12-20] VITALS (8 sets, daily range): BP systolic 136–154; BP diastolic 74–83; PULSE 56–75; RESP 10–18; TEMP 36.1–36.9; O2SAT 96–98; BMI 25.2
[2021-12-20] MEDS: LACTATED RINGERS 1,000 ML 100 ML IV ×2 (14:27→16:03)
--- NOTE | 2021-12-20 15:22 | PM.HP.1 ---
History of Present Illness History of Present Illness Chief complaint: REPAIR LEFT INGUINAL HERNIA Narrative: 71-year-old man with a symptomatic left inguinal hernia reducible referred for elective open repair. No interval changes in health. Please refer to the H& P from November 14, 2021 for further detail. Patient History Medical History Body posture problem Chicken pox Colon polyps (~2004) Eczema Edema of left lower extremity Heart murmur Hemorrhoid (~2015) Hx of deep venous thrombosis Hypertension, essential, benign Left arm pain Left knee pain Measles Mumps Screening for hyperlipidemia Screening for prostate cancer Shoulder pain (~2011) Skin cancer (~2013) Upper extremity somatic dysfunction Surgical History Anesthesia History of basal cell carcinoma excision (~2013) History of hemangioma excision (~1989) History of shoulder surgery (08/13/16) History of tonsillectomy (~1954) Family & Social History Family History Father No problems noted. Mother Dementia Hypertension Brother Hypertension Brother Hypertension Grandfather History of heart disease Grandmother Cancer Grandfather History of heart disease Tobacco & Substance use: Smoking Status Never smoker alcohol intake current alcohol intake frequency 0-2 drinks per day Substance Use Type does not use Meds Home Medications and Allergies Home Medications Medication Instructions Recorded Confirmed Type apixaban 5 mg tablet (Eliquis) See Rx Instructions .Route 09/23/21 12/20/21 Rx .COMPLEX #180 tabs lisinopril 20 mg tablet See Rx Instructions .Route 09/23/21 12/20/21 Rx .COMPLEX #90 tabs Allergies Allergy/AdvReac Type Severity Reaction Status Date / Time No Known Drug Allergies Allergy Verified 12/20/21 14:29 Exam Vital Signs (past 8 hours): - 12/20/21 14:39 Temperature 98.4 F Pulse Rate 69 Respiratory Rate 18 Blood Pressure 154/78 H Pulse Oximetry 98 Narrative Exam Narrative: General adult male alert oriented no acute distress Abdomen left inguinal hernia marked with my initials Assessment & Plan Assessment and plan (1) Left inguinal hernia: Status: Acute Assessment & Plan narrative: 71M with a symptomatic left inguinal hernia here for elective open repair. Operative overview discussed. Risks including bleeding, infection , reoccurrence, chronic pain damage to surrounding structures were discussed. Questions answered will proceed. Time Spent With Patient Critical Care time: I spent a total of [] minutes of critical care time on this patient's care today; this time is exclusive of procedural time.
--- NOTE | 2021-12-20 15:37 | PM.OP.1 ---
Operative Date/Time/Diagnoses Date of procedure: 12/20/21 Time of procedure: 15:37 Pre-op diagnosis: Left inguinal hernia Post-op diagnosis: same Procedure & Clinicians Procedure: Open left inguinal hernia repair with mesh Same procedure as scheduled: Yes Indications: Symptomatic reducible left inguinal hernia Surgeon: Hugo Verdugo Anesthesia Type: General Operative Notes Specimen(s): none sent Estimated Blood Loss (mL): 20 Procedure in detail: The patient was placed supine on the table and bilateral lower extremity compression devices were applied. Anesthesia was induced they were intubated with an LMA and received Ancef. A time-out was performed. They were prepped and draped in sterile fashion. The left external inguinal ring and the anterior superior iliac crest were identified and marked. 1 finger breath above the inguinal ligament the skin was infiltrated with 0.25% bupivacaine. The skin incision was made here and the subcutaneous tissues were divided with electrocautery exposing the external oblique aponeurosis which was then opened along the direction of its fibers. Using blunt dissection the internal oblique aporneurosis was from the external oblique upper leaflet. The cord was carefully dissected away from the inguinal canal adjacent to the pubic tubercle. The cord including the vas deferens, testicular bloody supply, ilioguinal and genital nerve were encircled with a [place] drain. A direct floor defect was identified and it was reduced into the abdomen and the internal oblique aporneuorsis was approximated to the inguinal ligament with Ethibond suture to reapproximate the floor over a plug of mesh. The cremasteric fibers surrounding the cord were divided using electrocautery adjacent to the internal ring.. The vas deferens and the testicular vessels were preserved and protected. The cord was carefully explored there was no evidence of an indirect hernia. I selected a 7x 15 cm lightweight Pro Loop hernia mesh. The inferior medial aspect of the mesh was anchored to insertion of the rectus muscle to the pubic tubercle such that there was approximately 2 cm of tubercle overlap with Ethibond. The inferior edge of the mesh was secured to the shelving edge of the inguinal ligament using Ethibond. Interrupted 3 0 Vicryl suture was used to anchor the superior aspect of the mesh to the conjoined tendon in several places. The tails were then reapproximated loosely around the spermatic cord. The tails of the mesh were then tucked under the external oblique aponeurosis. The repair was checked for hemostasis. The wound was irrigated with sterile saline. The external oblique aponeurosis was reapproximated in a running fashion using 3 0 Vicryl. The subcutaneous tissues were reapproximated with 3 0 Vicryl skin closed with 4 0 Monocryl followed by the application of Dermabond. At the end of the operation I ensured that both testicles were within the scrotum. The sponge instrument count at the end operation was correct. The patient emerged from anesthesia was extubated and transferred to the postoperative care unit in stable condition. A total of 30 ml of of 0.25% bupivicaine was used to infiltrate the skin. Complications: none Post-operative Condition: stable Disposition: same day surgery
[2021-12-20] MEDS: CEFAZOLIN 2 GM/100 ML PREMIX 100 ML IV (15:50)
[2021-12-20] MEDS: BUPIVACAINE 0.25% (PF) VIAL 30 ML INJ (15:50)
--- NOTE | 2021-12-20 15:54 | SUR.OPER ---
Supine on padded OR bed, head on pillow, arms secured on padded arm boards at <90 degrees abduction, legs uncrossed, safety belt at thigh, gel pad under heels.
[2021-12-20] MEDS: ACETAMINOPHEN 325 MG TABLET PO ×2 (16:59→17:24)
== END 2021-12-20 17:26 | disposition home or self-care (01) ==
PROVIDERS: Family Provider Family Medicine; PCP Family Medicine; Referring Provider Surgery; Visit Provider Surgery
PROC: (CPT 49505; principal; 2021-12-20 15:30)
DX: K40.90 Unilateral inguinal hernia, without obstruction or gangrene, not specified as recurrent (principal); I10 Essential (primary) hypertension
CPT/HCPCS: 49505; 00830; J0690; J1100; J2405; J2704; J3010

== ENCOUNTER → 2021-12-26 07:43 | Outpatient (CLI) | payer MEDICARE, SELFPAY ==
[2021-12-26 08:17] LABS: Add Manual Diff / Slide Review NO; Basophils Absolute Auto 0 /uL (0-100); Basophils Percent Auto 0.6 % (0-2); Eosinophils Absolute Auto 100 /uL (0-450); Eosinophils Percent Auto 4.6 % (2-4); Hematocrit 40.6 % (41-53); Hemoglobin 14.2 g/dL (13.5-17.5); Lymphocytes Absolute Auto 1300 /uL (1100-4500); Lymphocytes Percent Auto 48.3 % (25-40); Mean Corpuscular Hemoglobin 32.6 PG (26-34); Mean Corpuscular Volume 93.1 fL (80-100); Monocytes Absolute Auto 300 /uL (0-900); Monocytes Percent Auto 11.7 % (3-14); Neutrophils Absolute Auto 900 /uL (1500-7000); Neutrophils Percent Auto 34.8 % (50-75); Platelet Count 159 X10^3/uL (150-400); Red Blood Cell Count 4.36 X10^6/uL (4.5-5.9); White Blood Cell Count 2.7 X10^3/uL (4.5-11.0)
[2021-12-26 08:31] LABS: Alanine Aminotransferase 19 IU/L (<50); Albumin 4.3 g/dL (3.5-5.0); Albumin Globulin Ratio 1.6 (1.0-2.8); Alkaline Phosphatase 48 U/L (38-126); Aspartate Aminotransferase 28 IU/L (17-59); BUN Creatinine Ratio 16.1 (6-22); Bilirubin Total 0.5 mg/dL (0.2-1.3); Blood Urea Nitrogen 15 mg/dL (9-20); Calcium 8.8 mg/dL (8.4-10.2); Carbon Dioxide 28 mmol/L (22-32); Chloride 104 mmol/L (98-107); Cholesterol 137 mg/dL (140-199); Estimated Glomerular Filt Rate > 60 mL/min (>60); Globulin 2.7 g/dL (1.7-4.1); Glucose 97 mg/dL (80-110); HDL Cholesterol 88 mg/dL (40-60); HEMOLYSIS < 15 (0-50); LDL Cholesterol Calculated 42 mg/dL (<100); Potassium 4.3 mmol/L (3.4-5.1); Sodium 140 mmol/L (137-145); Triglycerides 33 mg/dL (35-150)
[2021-12-26 09:01] LABS: Prostate Specific Antigen Scrn 0.698 ng/mL (0.1-4.0)
== END ==
PROVIDERS: Family Provider Family Medicine; PCP Family Medicine; Referring Provider Family Medicine; Visit Provider Family Medicine
DX: I10 Essential (primary) hypertension (principal); Z12.5 Encounter for screening for malignant neoplasm of prostate; Z13.220 Encounter for screening for lipoid disorders
CPT/HCPCS: 36415; 80053; 80061; 85025; G0103

== ENCOUNTER → 2022-10-30 12:12 | Outpatient (CLI) | payer MEDICARE, SELFPAY ==
--- NOTE | 2022-10-30 12:13 | DI.US.S_ITS ---
PROCEDURE: US PERIPH VENOUS LOW EXTREM LT INDICATIONS: monitor clot TECHNIQUE: Real-time imaging, as well as color and pulse Doppler interrogation, were performed of the lower extremity deep veins from the inguinal ligament to the popliteal fossa, with documentation of the visualized calf veins. COMPARISON: [facility], , PERIP VENOUS LOW EXTREM LT, 10/29/2021, 7:21. [facility], PERIP VENOUS LOW EXTREM LT, 07/16/2020, 10:58. [facility], PERIP VENOUS LOW EXTREM LT, 08/15/2020, 10:13. FINDINGS: There is occlusive thrombus seen within the majority of the femoral vein. Partially occlusive thrombus can be seen within the popliteal vein. There is occlusive thrombus within the peroneal vein. The extent of deep venous thrombosis is more prominent than on the ultrasound dated 10/29/2021. IMPRESSION: Left lower extremity deep venous thrombosis can be seen, which is more extensive than on the prior ultrasound in 1 year previously. Note: Concordant preliminary findings given by the assembler lay ups upon the completion of the examination to Mey at the referring provider's office at 12:43 p.m. on October 30, 2022. Dictated by: Sedrick Crook M.D. on 10/30/2022 at 12:04 Approved by: Sedrick Crook M.D. on 10/30/2022 at 12:05
== END ==
PROVIDERS: Family Provider Family Medicine; PCP Family Medicine; Referring Provider Family Medicine; Visit Provider Family Medicine
DX: I82.512 Chronic embolism and thrombosis of left femoral vein (principal); I82.532 Chronic embolism and thrombosis of left popliteal vein; I82.552 Chronic embolism and thrombosis of left peroneal vein
CPT/HCPCS: 93971

== ENCOUNTER → 2022-12-24 08:05 | Outpatient (CLI) | payer MEDICARE, SELFPAY ==
[2022-12-24 08:56] LABS: Add Manual Diff / Slide Review NO; Basophils Absolute Auto 0 /uL (0-100); Basophils Percent Auto 0.7 % (0-2); Eosinophils Absolute Auto 100 /uL (0-450); Eosinophils Percent Auto 3.5 % (2-4); Hemoglobin 14.2 g/dL (13.5-17.5); Lymphocytes Absolute Auto 1100 /uL (1100-4500); Lymphocytes Percent Auto 47.1 % (25-40); Mean Corpuscular HGB Conc 35.4 % (30-36); Mean Corpuscular Hemoglobin 32.6 PG (26-34); Mean Corpuscular Volume 92.1 fL (80-100); Monocytes Absolute Auto 300 /uL (0-900); Monocytes Percent Auto 13.4 % (3-14); Neutrophils Absolute Auto 800 /uL (1500-7000); Neutrophils Percent Auto 35.3 % (50-75); Platelet Count 160 X10^3/uL (150-400); Red Blood Cell Count 4.34 X10^6/uL (4.5-5.9); White Blood Cell Count 2.2 X10^3/uL (4.5-11.0)
[2022-12-24 09:18] LABS: Alanine Aminotransferase 32 IU/L (<50); Albumin 4.1 g/dL (3.5-5.0); Albumin Globulin Ratio 1.6 (1.0-2.8); Alkaline Phosphatase 49 U/L (38-126); Aspartate Aminotransferase 39 IU/L (17-59); BUN Creatinine Ratio 19.4 (6-22); Bilirubin Total 0.5 mg/dL (0.2-1.3); Blood Urea Nitrogen 18 mg/dL (9-20); Calcium 9.3 mg/dL (8.4-10.2); Carbon Dioxide 24 mmol/L (22-32); Chloride 107 mmol/L (98-107); Cholesterol 133 mg/dL (140-199); Estimated Glomerular Filt Rate > 60 mL/min (>60); Globulin 2.6 g/dL (1.7-4.1); Glucose 99 mg/dL (80-110); HDL Cholesterol 82 mg/dL (40-60); HEMOLYSIS < 15 (0-50); LDL Cholesterol Calculated 42 mg/dL (<100); Potassium 4.3 mmol/L (3.4-5.1); Sodium 140 mmol/L (137-145); Total Protein 6.7 g/dL (6.3-8.2); Triglycerides 43 mg/dL (35-150)
[2022-12-24 09:53] LABS: Prostate Specific Antigen Scrn 0.561 ng/mL (0.1-4.0)
== END ==
PROVIDERS: Family Provider Family Medicine; PCP Family Medicine; Referring Provider Family Medicine; Visit Provider Family Medicine
DX: I10 Essential (primary) hypertension (principal); Z12.5 Encounter for screening for malignant neoplasm of prostate; Z13.220 Encounter for screening for lipoid disorders
CPT/HCPCS: 36415; 80053; 80061; 85025; G0103

== ENCOUNTER → 2023-12-16 07:24 | Outpatient (CLI) | payer MEDICARE, SELFPAY ==
[2023-12-16 07:58] LABS: Add Manual Diff / Slide Review NO; Basophils Absolute Auto 0 /uL (0-100); Basophils Percent Auto 0.6 % (0-2); Eosinophils Absolute Auto 100 /uL (0-450); Eosinophils Percent Auto 2.9 % (2-4); Hematocrit 41.7 % (41-53); Hemoglobin 14.4 g/dL (13.5-17.5); Lymphocytes Absolute Auto 1000 /uL (1100-4500); Lymphocytes Percent Auto 35.3 % (25-40); Mean Corpuscular HGB Conc 34.4 % (30-36); Mean Corpuscular Hemoglobin 32.6 PG (26-34); Mean Corpuscular Volume 94.8 fL (80-100); Monocytes Absolute Auto 400 /uL (0-900); Monocytes Percent Auto 12.9 % (3-14); Neutrophils Absolute Auto 1400 /uL (1500-7000); Neutrophils Percent Auto 48.3 % (50-75); Platelet Count 149 X10^3/uL (150-400); Red Cell Distribution Width 13.3 % (11.6-14.8); White Blood Cell Count 2.9 X10^3/uL (4.5-11.0)
[2023-12-16 08:20] LABS: Alanine Aminotransferase 35 IU/L (<50); Albumin 4.1 g/dL (3.5-5.0); Albumin Globulin Ratio 1.5 (1.0-2.8); Alkaline Phosphatase 53 U/L (38-126); Aspartate Aminotransferase 41 IU/L (17-59); BUN Creatinine Ratio 14.6 (6-22); Bilirubin Total 0.8 mg/dL (0.2-1.3); Blood Urea Nitrogen 14 mg/dL (9-20); Calcium 9.2 mg/dL (8.4-10.2); Carbon Dioxide 26 mmol/L (22-32); Chloride 107 mmol/L (98-107); Cholesterol 129 mg/dL (140-199); Estimated Glomerular Filt Rate > 60 mL/min (>60); Globulin 2.7 g/dL (1.7-4.1); Glucose 106 mg/dL (80-110); HDL Cholesterol 77 mg/dL (40-60); HEMOLYSIS < 15 (0-50); LDL Cholesterol Calculated 45 mg/dL (<100); Potassium 4.3 mmol/L (3.4-5.1); Sodium 138 mmol/L (137-145); Total Protein 6.8 g/dL (6.3-8.2); Triglycerides 37 mg/dL (35-150)
== END ==
PROVIDERS: Family Provider Family Medicine; PCP Family Medicine; Referring Provider Family Medicine; Visit Provider Family Medicine
DX: I10 Essential (primary) hypertension (principal); Z13.220 Encounter for screening for lipoid disorders; Z86.718 Personal history of other venous thrombosis and embolism
CPT/HCPCS: 36415; 80053; 80061; 85025

== ENCOUNTER → 2024-12-07 10:08 | Outpatient (CLI) | payer MEDICARE, SELFPAY ==
--- NOTE | 2024-12-07 10:11 | DI.NM.S_ITS ---
PROCEDURE: NM EXERCISE TREADMILL NON NUC COMPARISON: None. INDICATIONS: Other chest pain FINDINGS: Patient exercised per the standard [facility] protocol. Total exercise time was 9 minutes and 20 seconds. Test was terminated secondary to fatigue. Maximum heart rate obtained was 155 beats per minute which is 108% of maximum predicted heart rate. Maximum blood pressure is 182/92[place] [address]. PRANAV-51%. 10.1 Mets. No ischemic changes noted. No arrhythmias present. No chest pains voiced. Normal heart rate and blood pressure response to exercise. IMPRESSION: 1. Negative exercise treadmill stress test for ischemia. 2. Excellent exercise tolerance. Dictated by: Franco Aquino M.D. on 12/08/2024 at 16:13 Approved by: Franco Aquino M.D. on 02/03/2025 at 8:09
== END ==
PROVIDERS: Family Provider Family Medicine; PCP Family Medicine; Referring Provider Internal Medicine Cardiovascular Disease; Visit Provider Internal Medicine Cardiovascular Disease
DX: R07.89 Other chest pain (principal)
CPT/HCPCS: 93017

== ENCOUNTER → 2024-12-20 08:30 | Outpatient (CLI) | payer MEDICARE, SELFPAY ==
[2024-12-20 08:55] LABS: Add Manual Diff / Slide Review NO; Hematocrit 42.0 % (41-53); Hemoglobin 14.5 g/dL (13.5-17.5); Lymphocytes Absolute Auto 1100 /uL (1100-4500); Mean Corpuscular HGB Conc 34.5 % (30-36); Mean Corpuscular Hemoglobin 31.8 PG (26-34); Mean Corpuscular Volume 92.1 fL (80-100); Platelet Count 151 X10^3/uL (150-400)
[2024-12-20 09:18] LABS: Alanine Aminotransferase 29 IU/L (<50); Albumin 4.6 g/dL (3.5-5.0); Albumin Globulin Ratio 1.7 (1.0-2.8); Alkaline Phosphatase 50 U/L (38-126); Blood Urea Nitrogen 17 mg/dL (9-20); Calcium 9.2 mg/dL (8.4-10.2); Carbon Dioxide 24 mmol/L (22-32); Chloride 106 mmol/L (98-107); Cholesterol 129 mg/dL (140-199); Estimated Glomerular Filt Rate > 60 mL/min (>60); Globulin 2.7 g/dL (1.7-4.1); Glucose 100 mg/dL (70-99); HDL Cholesterol 75 mg/dL (40-60); HEMOLYSIS < 15 (0-50); Potassium 4.3 mmol/L (3.4-5.1); Sodium 139 mmol/L (137-145); Total Protein 7.3 g/dL (6.3-8.2); Triglycerides 68 mg/dL (35-150)
== END ==
PROVIDERS: Family Provider Family Medicine; PCP Family Medicine; Referring Provider Family Medicine; Visit Provider Family Medicine
DX: D72.819 Decreased white blood cell count, unspecified (principal); I10 Essential (primary) hypertension; Z12.5 Encounter for screening for malignant neoplasm of prostate; I82.502 Chronic embolism and thrombosis of unspecified deep veins of left lower extremity
CPT/HCPCS: 36415; 80053; 80061; 85025; G0103